=== PATIENT | female | born 1935 | race Caucasian/White ===

== ENCOUNTER 2017-08-23 15:15 | Outpatient (RCR) | payer MEDICARE, OTHER, SELFPAY ==
[2017-07-25 00:19] VITALS: BP 169/95; PULSE 85; RESP 16; TEMP 36.8; BMI 18.7
[2017-07-26 15:30] VITALS: BP 146/67; PULSE 79; RESP 16; TEMP 36.3; BMI 18.7
--- NOTE | 2017-07-26 16:00 | PCM.WC.PN ---
(1) Type 2 diabetes mellitus without complications Status: Chronic Current Visit: Yes Qualifiers: Diabetes mellitus jail insulin use: unspecified jail insulin use status Qualified Code(s): E11.9 - Type 2 diabetes mellitus without complications Code(s): E11.9 - Type 2 diabetes mellitus without complications (2) Type 2 diabetes mellitus with other skin ulcer Status: Acute Current Visit: Yes Qualifiers: Diabetes mellitus jail insulin use: unspecified jail insulin use status Code(s): E11.622 - Type 2 diabetes mellitus with other skin ulcer; L98.499 - Non-pressure chronic ulcer of skin of other sites with unspecified severity (3) Ulcer of calf with fat layer exposed Status: Acute Current Visit: Yes Qualifiers: Laterality: left Qualified Code(s): 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 Pt's granddaughter has been treating it with silvercell and dry bandage daily since discharge from the hospital. Moderate clear drainage. Denies redness, pus, malodor, warmth. Minimal pain. Minimal edema. Denies N/V/F/C. 07/05--Using promogran and silvercell every other day. Improved clear drainage. Denies redness, pus, malodor, warmth. Minimal pain. Minimal edema. Denies N/V/F/C. Vascular testing scheduled for next week. 07/12--Using promogran and silvercell 3x/week. Improved clear drainage. Denies redness, pus, malodor, warmth. Minimal pain. Minimal edema. Denies N/V/F/C. Vascular testing done, final read pending but reveals no venous insufficiency as well as triphasic waveforms (though calcified vessels, so TOY is non-diagnostic). Pt's grand-daughter admits that the patient will not keep any compression in place, because the patient has dementia and forgets why she has a stocking on her leg (so she removes it). 07/26/17--Improved. Using promogran and silvercell every other day. Denies pus, malodor, warmth, pain. Denies N/V/F/C. Progress of Wound: Improved. - Physical Exam Vital Signs Temp Pulse Resp BP 97.4 F L 79 16 146/67 H 07/26/17 15:30 07/26/17 15:30 07/26/17 15:30 07/26/17 15:30 General: Alert, Cooperative, No apparent distress Skin: Ulcer/ Wound - L calf with no erythema, no malodor, no pus, no calor, no TTP. No clinical signs of acute bacterial infection noted. See nurse's wound assessment. Wound Measurements and Assessment WC - Nurse 1 - General Ulcer Measurement Start: 07/26/17 15:30 Freq: Status: Active Protocol: Activity Type Activity Date Activity User E-Sign Co-Sign Detail Recorded Client Recorded Date Recorded By Document 07/26/17 15:30 DL [id number] 07/26/17 15:38 DL 07/26/17 15:30 Wound Center Nurse 1 [Ulcer Assessment Protocol: WC.WD.LOC] #1 Posterior LLE -Current Size (cm) - Length 1 -Current Size (cm) - Width 1.7 -Current Size (cm) - Depth 0.2 -Total Square Cm 1.7 -Photo Taken No -Exudate Amt Small (1-33%) -Exudate Type Serosanguineous -Wound Margin Thickened -Granulation Amt Medium (34-66%) -Granulation Quality [place] -Necrosis Amt Medium (34-66%) -Necrotic Tissue Type Adherent Slough -Structure Exposed N/A -Texture (Anuradha-wound Skin Appearance) Scarring -Moisture (Anuradha-wound Skin Appearance No Abnormality ) -Color (Anuradha-wound Skin Appearance) No Abnormality -Temperature (Anuradha-wound Skin No Abnormality Appearance) (Pt Warm) -Ulcer Cleansing Rinsed/ Irrigated with Saline -Foul Odor after Cleansing No -Anesthetic Used 4% Lidocaine Solution [Edema Assessment] -Left Calf (cm) 28.4 -Left Ankle (cm) 19 Debridement Note Wound debrided: L calf Laterality: Left Wound Grade/Stage: Marino grade 1 full thickness Type of Debridement: Excisional debridement Anesthesia Used: 4% Lidocaine Solution Depth: Down to and including healthy tissue, in the subcutaneous layer Percentage of wound debrided: 100 Instrument Used: 3mm curette Tissue Removed: fibrous slough Severity: Fat Layer Exposed Amount of bleeding with debridement: Mild Bleeding Controlled with: Pressure, Compression and gauze Patient tolerated procedure well Assessment/Plan Active Problems (Last Updated 07/12/17 @ 15:31 by Sol Rodriguez) Striking against or struck by other objects, initial encounter (Acute) Type 2 diabetes mellitus with other skin ulcer (Acute) Type 2 diabetes mellitus without complications (Chronic) Ulcer of calf with fat layer exposed (Acute) Assessment: See diagnoses Plan: SQ/excisional debridement L calf ulcer as above. Cont promogran, stop silvercel. Add adaptic. Keep pressure off ulcer at all times. Discussed importance of tight blood sugar control, adequate nutrition especially increased protein intake to promote healing. LEAs and venous duplex reviewed. Pt has calcified vessels, if ulceration is non-healing, plan for referral to vascular surgeon for further arterial workup. Wear double layer tubigrip--pt less likely to remove to touch the ulcer. RTC 1 week. Monitor for redness, pus, malodor, warmth, inc pain, inc swelling as well as N/V/F/C and go to the ED with these. Call with questions. Decrease freqeuency to 3x/week.
--- NOTE | 2017-07-26 16:04 | PN.PCM_ITS ---
(1) Type 2 diabetes mellitus without complications Status: Chronic Current Visit: Yes Qualifiers: Diabetes mellitus senior living insulin use: unspecified senior living insulin use status Qualified Code(s): E11.9 - Type 2 diabetes mellitus without complications Code(s): E11.9 - Type 2 diabetes mellitus without complications (2) Type 2 diabetes mellitus with other skin ulcer Status: Acute Current Visit: Yes Qualifiers: Diabetes mellitus senior living insulin use: unspecified senior living insulin use status Code(s): E11.622 - Type 2 diabetes mellitus with other skin ulcer; L98.499 - Non -pressure chronic ulcer of skin of other sites with unspecified severity (3) Ulcer of calf with fat layer exposed Status: Acute Current Visit: Yes Qualifiers: Laterality: left Qualified Code(s): 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 Pt's granddaughter has been treating it with silvercell and dry bandage daily since discharge from the hospital. Moderate clear drainage. Denies redness, pus, malodor, warmth. Minimal pain. Minimal edema. Denies N/V/F/C. 07/05--Using promogran and silvercell every other day. Improved clear drainage. Denies redness, pus, malodor, warmth. Minimal pain. Minimal edema. Denies N/V/F/C. Vascular testing scheduled for next week. 07/12--Using promogran and silvercell 3x/ week. Improved clear drainage. Denies redness, pus, malodor, warmth. Minimal pain. Minimal edema. Denies N/V/F/C. Vascular testing done, final read pending but reveals no venous insufficiency as well as triphasic waveforms ( though calcified vessels, so TOY is non-diagnostic). Pt's grand-daughter admits that the patient will not keep any compression in place, because the patient has dementia and forgets why she has a stocking on her leg (so she removes it). 07/26/17--Improved. Using promogran and silvercell every other day. Denies pus, malodor, warmth, pain. Denies N/V/F/C. Progress of Wound: Improved. - Physical Exam Vital Signs Temp Pulse Resp BP 97.4 F L 79 16 146/67 H 07/26/17 15:30 07/26/17 15:30 07/26/17 15:30 07/26/17 15:30 General: Alert, Cooperative, No apparent distress Skin: Ulcer/ Wound - L calf with no erythema, no malodor, no pus, no calor, no TTP. No clinical signs of acute bacterial infection noted. See nurse's wound assessment. Wound Measurements and Assessment WC - Nurse 1 - General Ulcer Measurement Start: 07/26/17 15:30 Freq: Status: Active Protocol: Activity Type Activity Date Activity User E-Sign Co-Sign Detail Recorded Client Recorded Date Recorded By Document 07/26/17 15:30 DL [id number] 07/26/17 15:38 DL 07/26/17 15:30 Wound Center Nurse 1 [Ulcer Assessment Protocol: WC.WD.LOC] #1 Posterior LLE -Current Size (cm) - Length 1 -Current Size (cm) - Width 1.7 -Current Size (cm) - Depth 0.2 -Total Square Cm 1.7 -Photo Taken No -Exudate Amt Small (1-33%) -Exudate Type Serosanguineous -Wound Margin Thickened -Granulation Amt Medium (34-66%) -Granulation Quality [place] -Necrosis Amt Medium (34-66%) -Necrotic Tissue Type Adherent Slough -Structure Exposed N/A -Texture (Anuradha-wound Skin Appearance) Scarring -Moisture (Anuradha-wound Skin Appearance No Abnormality ) -Color (Anuradha-wound Skin Appearance) No Abnormality -Temperature (Anuradha-wound Skin No Abnormality Appearance) (Pt Warm) -Ulcer Cleansing Rinsed/ Irrigated with Saline -Foul Odor after Cleansing No -Anesthetic Used 4% Lidocaine Solution [Edema Assessment] -Left Calf (cm) 28.4 -Left Ankle (cm) 19 Debridement Note Wound debrided: L calf Laterality: Left Wound Grade/Stage: Marino grade 1 full thickness Type of Debridement: Excisional debridement Anesthesia Used: 4% Lidocaine Solution Depth: Down to and including healthy tissue, in the subcutaneous layer Percentage of wound debrided: 100 Instrument Used: 3mm curette Tissue Removed: fibrous slough Severity: Fat Layer Exposed Amount of bleeding with debridement: Mild Bleeding Controlled with: Pressure, Compression and gauze Patient tolerated procedure well Assessment/Plan Active Problems (Last Updated 07/12/17 @ 15:31 by Sol Rodriguez) Striking against or struck by other objects, initial encounter (Acute) Type 2 diabetes mellitus with other skin ulcer (Acute) Type 2 diabetes mellitus without complications (Chronic) Ulcer of calf with fat layer exposed (Acute) Assessment: See diagnoses Plan: SQ/excisional debridement L calf ulcer as above. Cont promogran, stop silvercel. Add adaptic. Keep pressure off ulcer at all times. Discussed importance of tight blood sugar control, adequate nutrition especially increased protein intake to promote healing. LEAs and venous duplex reviewed. Pt has calcified vessels, if ulceration is non-healing, plan for referral to vascular surgeon for further arterial workup. Wear double layer tubigrip--pt less likely to remove to touch the ulcer. RTC 1 week. Monitor for redness, pus , malodor, warmth, inc pain, inc swelling as well as N/V/F/C and go to the ED with these. Call with questions. Decrease freqeuency to 3x/week.
[2017-08-09 16:01] VITALS: BP 136/74; PULSE 92; RESP 18; TEMP 36.4; BMI 18.7
--- NOTE | 2017-08-09 16:40 | PCM.WC.PN ---
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 insulin use status Qualified Code(s): E11.9 - Type 2 diabetes mellitus without complications Code(s): E11.9 - Type 2 diabetes mellitus without complications (3) Type 2 diabetes mellitus with other skin ulcer Status: Acute Current Visit: Yes Qualifiers: Diabetes mellitus long-term insulin use: unspecified watermelon 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 Pt's granddaughter has been treating it with silvercell and dry bandage daily since discharge from the hospital. Moderate clear drainage. Denies redness, pus, malodor, warmth. Minimal pain. Minimal edema. Denies N/V/F/C. 07/05--Using promogran and silvercell every other day. Improved clear drainage. Denies redness, pus, malodor, warmth. Minimal pain. Minimal edema. Denies N/V/F/C. Vascular testing scheduled for next week. 07/12--Using promogran and silvercell 3x/week. Improved clear drainage. Denies redness, pus, malodor, warmth. Minimal pain. Minimal edema. Denies N/V/F/C. Vascular testing done, final read pending but reveals no venous insufficiency as well as triphasic waveforms (though calcified vessels, so TOY is non-diagnostic). Pt's grand-daughter admits that the patient will not keep any compression in place, because the patient has dementia and forgets why she has a stocking on her leg (so she removes it). 07/26/17--Improved. Using promogran and silvercell every other day. Denies pus, malodor, warmth, pain. Denies N/V/F/C. 08/09--Improved. Using promogran and adaptic 3x/week. Denies pus, malodor, warmth, or pain. Denies N/V/F/C. Progress of Wound: Improved. - Physical Exam Vital Signs Temp Pulse Resp BP 97.6 F L 92 18 136/74 H 08/09/17 16:01 08/09/17 16:01 08/09/17 16:01 08/09/17 16:01 General: Alert, Oriented x3, Cooperative, No apparent distress Skin: Ulcer/ Wound - L calf with no erythema, no calor, no purulent drainage, no malodor, no TTP of ulcer or aba-ulcer area. No clinical signs of acute bacterial infection noted. See wound/edema assessment below. Wound Measurements and Assessment - Nurse 1 - General Ulcer Measurement Start: 07/26/17 15:30 Freq: Status: Active Protocol: Activity Type Activity Date Activity User E-Sign Co-Sign Detail Recorded Client Recorded Date Recorded By Document 08/09/17 16:01 [id number] 08/09/17 16:07 08/09/17 16:01 Wound Center Nurse 1 [Ulcer Assessment Protocol: WC.WD.LOC] #1 Posterior LLE -Combined with other wound No -Current Size (cm) - Length 1.3 -Current Size (cm) - Width 1.0 -Current Size (cm) - Depth 0.2 -Total Square Cm 1.30 -Date of Last Picture (Recall this 08/09/17 field) -Photo Taken Yes -Epithelialization None Present -Tunneling No -Undermining/Tunneling No -Circular Undermining No -Classification - Thickness Full Thickness without Exposed Support Structure -Exudate Amt Small (1-33%) -Exudate Type Serosanguineous -Wound Margin Thickened -Granulation Amt Medium (34-66%) -Granulation Quality [place] -Slough/Fibrin Yes -Necrosis Amt None Present (0 %) -Necrotic Tissue Type Adherent Slough -Structure Exposed N/A -Texture (Aba-wound Skin Appearance) Scarring -Moisture (Aba-wound Skin Appearance No Abnormality ) -Color (Aba-wound Skin Appearance) No Abnormality -Temperature (Aba-wound Skin No Abnormality Appearance) (Pt Warm) -Tenderness on Palpation (Aba-wound No Skin Appearance) -Ulcer Cleansing Rinsed/ Irrigated with Saline -Foul Odor after Cleansing No -Anesthetic Used 4% Lidocaine Solution [Edema Assessment] -Lower Limb Edema Present No -Left Calf (cm) 30.5 -Left Ankle (cm) 20.5 Debridement Note Post-Debridement Measurements/Treatment WC - Nurse 2 - General Ulcer CM Notes Start: 07/26/17 15:30 Freq: Status: Active Protocol: Activity Type Activity Date Activity User E-Sign Co-Sign Detail Recorded Client Recorded Date Recorded By Document 07/26/17 15:58 MW [id number] 07/26/17 16:03 MW 07/26/17 15:58 Wound Center Nurse 2 #1 Posterior LLE -Time 15:59 -Correct Patient Yes -Correct Side, Site, Position Yes -Correct Procedure Yes -Procedure Performed Yes -Type of Procedure Debridement -Clinical Debridement Subcutaneous -Post Debridement Size (cm) - Length 1.1 -Post Debridement Size (cm) - Width 1.8 -Post Debridement Size (cm) - Depth 0.1 -Total Square Cm 1.98 -Wound/Ulcer Outcome Not Healed -Ulcer Cleansing Rinsed/ Irrigated with Saline -Foul Odor after Cleansing No -Bioengineered Tissue No -Cetacaine Hines No -Bleeding Controlled with Pressure -Treatment Response Procedure Tolerated Well Pain Scale: 0-10 Numeric Is Patient Pain Free? Yes Wound debrided: L calf Laterality: Left Wound Grade/Stage: Full thickness ulcer - traumatic. Non-healing due to DM, herbert grade 1. Type of Debridement: Excisional debridement Anesthesia Used: 4% Lidocaine Solution Depth: Down to and including healthy tissue, in the subcutaneous layer Percentage of wound debrided: 100 Instrument Used: 3mm curette Tissue Removed: fibrous slough Severity: Fat Layer Exposed Amount of bleeding with debridement: Mild Bleeding Controlled with: Pressure, Compression and gauze Patient tolerated procedure well Assessment/Plan Active Problems (Last Updated 07/12/17 @ 15:31 by Sol Rodriguez) Striking against or struck by other objects, initial encounter (Acute) Type 2 diabetes mellitus with other skin ulcer (Acute) Type 2 diabetes mellitus without complications (Chronic) Ulcer of calf with fat layer exposed (Acute) Assessment: See diagnoses Plan: SQ/excisional debridement L calf ulcer as above. Cont promogran, adaptic. Keep pressure off ulcer at all times. Discussed importance of tight blood sugar control, adequate nutrition especially increased protein intake to promote healing. LEAs and venous duplex reviewed. Pt has calcified vessels, if ulceration is non-healing, plan for referral to vascular surgeon for further arterial workup. Wear double layer tubigrip--pt less likely to remove to touch the ulcer. RTC 1 week. Monitor for redness, pus, malodor, warmth, inc pain, inc swelling as well as N/V/F/C and go to the ED with these. Call with questions. Cont 3x/week.
--- NOTE | 2017-08-09 16:45 | PN.PCM_ITS ---
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 Code(s): L97.202 - Non-pressure chronic ulcer of unspecified calf with fat layer exposed (2) Type 2 diabetes mellitus without complications Status: Chronic Current Visit: Yes Qualifiers: Diabetes mellitus intermediate project manager insulin use: unspecified intermediate project manager insulin use status Qualified Code(s): E11.9 - Type 2 diabetes mellitus without complications Code(s): E11.9 - Type 2 diabetes mellitus without complications (3) Type 2 diabetes mellitus with other skin ulcer Status: Acute Current Visit: Yes Qualifiers: Diabetes mellitus long-term insulin use: unspecified intermediate project manager insulin use status Code(s): E11.622 - Type 2 diabetes mellitus with other skin ulcer; L98.499 - Non -pressure chronic ulcer of skin of other sites with unspecified severity (4) Striking against or struck by other objects, initial encounter Status: Acute Current Visit: Yes Code(s): W22.8XXA - Striking against or struck by other objects, initial encounter Type of Wound Date of Service: 08/09/17 Chief Complaint: L calf ulcer History of Wound: L calf ulcer present for 2 months, non-healing likely due to diabetes, present due to strike against a walker. Pt's granddaughter has been treating it with silvercell and dry bandage daily since discharge from the hospital. Moderate clear drainage. Denies redness, pus, malodor, warmth. Minimal pain. Minimal edema. Denies N/V/F/C. 07/05--Using promogran and silvercell every other day. Improved clear drainage. Denies redness, pus, malodor, warmth. Minimal pain. Minimal edema. Denies N/V/F/C. Vascular testing scheduled for next week. 07/12--Using promogran and silvercell 3x/ week. Improved clear drainage. Denies redness, pus, malodor, warmth. Minimal pain. Minimal edema. Denies N/V/F/C. Vascular testing done, final read pending but reveals no venous insufficiency as well as triphasic waveforms ( though calcified vessels, so TOY is non-diagnostic). Pt's grand-daughter admits that the patient will not keep any compression in place, because the patient has dementia and forgets why she has a stocking on her leg (so she removes it). 07/26/17--Improved. Using promogran and silvercell every other day. Denies pus, malodor, warmth, pain. Denies N/V/F/C. 08/09--Improved. Using promogran and adaptic 3x/week. Denies pus, malodor, warmth, or pain. Denies N/V/F/C. Progress of Wound: Improved. - Physical Exam Vital Signs Temp Pulse Resp BP 97.6 F L 92 18 136/74 H 08/09/17 16:01 08/09/17 16:01 08/09/17 16:01 08/09/17 16:01 General: Alert, Oriented x3, Cooperative, No apparent distress Skin: Ulcer/ Wound - L calf with no erythema, no calor, no purulent drainage, no malodor, no TTP of ulcer or aba-ulcer area. No clinical signs of acute bacterial infection noted. See wound/edema assessment below. Wound Measurements and Assessment - Nurse 1 - General Ulcer Measurement Start: 07/26/17 15:30 Freq: Status: Active Protocol: Activity Type Activity Date Activity User E-Sign Co-Sign Detail Recorded Client Recorded Date Recorded By Document 08/09/17 16:01 [id number] 08/09/17 16:07 08/09/17 16:01 Wound Center Nurse 1 [Ulcer Assessment Protocol: WC.WD.LOC] #1 Posterior LLE -Combined with other wound No -Current Size (cm) - Length 1.3 -Current Size (cm) - Width 1.0 -Current Size (cm) - Depth 0.2 -Total Square Cm 1.30 -Date of Last Picture (Recall this 08/09/17 field) -Photo Taken Yes -Epithelialization None Present -Tunneling No -Undermining/Tunneling No -Circular Undermining No -Classification - Thickness Full Thickness without Exposed Support Structure -Exudate Amt Small (1-33%) -Exudate Type Serosanguineous -Wound Margin Thickened -Granulation Amt Medium (34-66%) -Granulation Quality [employer] -Slough/Fibrin Yes -Necrosis Amt None Present (0 %) -Necrotic Tissue Type Adherent Slough -Structure Exposed N/A -Texture (Aba-wound Skin Appearance) Scarring -Moisture (Aba-wound Skin Appearance No Abnormality ) -Color (Aba-wound Skin Appearance) No Abnormality -Temperature (Aba-wound Skin No Abnormality Appearance) (Pt Warm) -Tenderness on Palpation (Aba-wound No Skin Appearance) -Ulcer Cleansing Rinsed/ Irrigated with Saline -Foul Odor after Cleansing No -Anesthetic Used 4% Lidocaine Solution [Edema Assessment] -Lower Limb Edema Present No -Left Calf (cm) 30.5 -Left Ankle (cm) 20.5 Debridement Note Post-Debridement Measurements/Treatment WC - Nurse 2 - General Ulcer CM Notes Start: 07/26/17 15:30 Freq: Status: Active Protocol: Activity Type Activity Date Activity User E-Sign Co-Sign Detail Recorded Client Recorded Date Recorded By Document 07/26/17 15:58 MW [id number] 07/26/17 16:03 MW 07/26/17 15:58 Wound Center Nurse 2 #1 Posterior LLE -Time 15:59 -Correct Patient Yes -Correct Side, Site, Position Yes -Correct Procedure Yes -Procedure Performed Yes -Type of Procedure Debridement -Clinical Debridement Subcutaneous -Post Debridement Size (cm) - Length 1.1 -Post Debridement Size (cm) - Width 1.8 -Post Debridement Size (cm) - Depth 0.1 -Total Square Cm 1.98 -Wound/Ulcer Outcome Not Healed -Ulcer Cleansing Rinsed/ Irrigated with Saline -Foul Odor after Cleansing No -Bioengineered Tissue No -Cetacaine [place] No -Bleeding Controlled with Pressure -Treatment Response Procedure Tolerated Well Pain Scale: 0-10 Numeric Is Patient Pain Free? Yes Wound debrided: L calf Laterality: Left Wound Grade/Stage: Full thickness ulcer - traumatic. Non-healing due to DM, herbert grade 1. Type of Debridement: Excisional debridement Anesthesia Used: 4% Lidocaine Solution Depth: Down to and including healthy tissue, in the subcutaneous layer Percentage of wound debrided: 100 Instrument Used: 3mm curette Tissue Removed: fibrous slough Severity: Fat Layer Exposed Amount of bleeding with debridement: Mild Bleeding Controlled with: Pressure, Compression and gauze Patient tolerated procedure well Assessment/Plan Active Problems (Last Updated 07/12/17 @ 15:31 by Sol Rodriguez) Striking against or struck by other objects, initial encounter (Acute) Type 2 diabetes mellitus with other skin ulcer (Acute) Type 2 diabetes mellitus without complications (Chronic) Ulcer of calf with fat layer exposed (Acute) Assessment: See diagnoses Plan: SQ/excisional debridement L calf ulcer as above. Cont promogran, adaptic. Keep pressure off ulcer at all times. Discussed importance of tight blood sugar control, adequate nutrition especially increased protein intake to promote healing. LEAs and venous duplex reviewed. Pt has calcified vessels, if ulceration is non-healing, plan for referral to vascular surgeon for further arterial workup. Wear double layer tubigrip--pt less likely to remove to touch the ulcer. RTC 1 week. Monitor for redness, pus, malodor, warmth, inc pain, inc swelling as well as N/V/F/C and go to the ED with these. Call with questions. Cont 3x/week.
[2017-08-16 15:09] VITALS: BP 147/96; PULSE 89; RESP 18; TEMP 36.6; BMI 18.7
--- NOTE | 2017-08-16 16:02 | PCM.WC.PN ---
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 Code(s): L97.202 - Non-pressure chronic ulcer of unspecified calf with fat layer exposed (2) Type 2 diabetes mellitus without complications Status: Chronic Current Visit: Yes Qualifiers: Diabetes mellitus rn long term care insulin use: unspecified rn long term care insulin use status Qualified Code(s): E11.9 - Type 2 diabetes mellitus without complications Code(s): E11.9 - Type 2 diabetes mellitus without complications (3) Type 2 diabetes mellitus with other skin ulcer Status: Acute Current Visit: Yes Qualifiers: Diabetes mellitus alf insulin use: unspecified rn long term care insulin use status Code(s): E11.622 - Type 2 diabetes mellitus with other skin ulcer; L98.499 - Non-pressure chronic ulcer of skin of other sites with unspecified severity (4) Striking against or struck by other objects, initial encounter Status: Acute Current Visit: Yes Code(s): W22.8XXA - Striking against or struck by other objects, initial encounter Type of Wound Date of Service: 08/16/17 Chief Complaint: L calf ulcer History of Wound: L calf ulcer present for 2 months, non-healing likely due to diabetes, present due to strike against a walker. Pt's granddaughter has been treating it with silvercell and dry bandage daily since discharge from the hospital. Moderate clear drainage. Denies redness, pus, malodor, warmth. Minimal pain. Minimal edema. Denies N/V/F/C. 07/05--Using promogran and silvercell every other day. Improved clear drainage. Denies redness, pus, malodor, warmth. Minimal pain. Minimal edema. Denies N/V/F/C. Vascular testing scheduled for next week. 07/12--Using promogran and silvercell 3x/week. Improved clear drainage. Denies redness, pus, malodor, warmth. Minimal pain. Minimal edema. Denies N/V/F/C. Vascular testing done, final read pending but reveals no venous insufficiency as well as triphasic waveforms (though calcified vessels, so TOY is non-diagnostic). Pt's grand-daughter admits that the patient will not keep any compression in place, because the patient has dementia and forgets why she has a stocking on her leg (so she removes it). 07/26/17--Improved. Using promogran and silvercell every other day. Denies pus, malodor, warmth, pain. Denies N/V/F/C. 08/09--Improved. Using promogran and adaptic 3x/week. Denies pus, malodor, warmth, or pain. Denies N/V/F/C. 08/16--Improved. Using promogran and adaptic 3x/week. Denies pus, malodor, warmth, or pain. Denies N/V/F/C. Area is drying out, will add hydrogel today. Progress of Wound: Improved, but drying out today. - Physical Exam Vital Signs Temp Pulse Resp BP 97.8 F 89 18 147/96 H 08/16/17 15:09 08/16/17 15:09 08/16/17 15:09 08/16/17 15:09 General: Alert, Oriented x3, Cooperative, No apparent distress Skin: Ulcer/ Wound - L calf with no erythema, no malodor, no pus, no TTP, no warmth. No clinical signs of acute bacterial infection noted. See wound/edema assessment below. Wound Measurements and Assessment ALEXUS - Nurse 1 - General Ulcer Measurement Start: 07/26/17 15:30 Freq: Status: Active Protocol: Activity Type Activity Date Activity User E-Sign Co-Sign Detail Recorded Client Recorded Date Recorded By Document 08/16/17 15:09 [id number] 08/16/17 15:18 08/16/17 15:09 Wound Center Nurse 1 [Ulcer Assessment Protocol: WC.WD.LOC] #1 Posterior LLE -Combined with other wound No -Current Size (cm) - Length 0.6 -Current Size (cm) - Width 0.6 -Current Size (cm) - Depth 0.1 -Total Square Cm 0.36 -Photo Taken No -Epithelialization Medium 34-66% -Tunneling No -Undermining/Tunneling No -Circular Undermining No -Exudate Amt None Present (0 %) -Wound Margin Indistinct, Non -Visible -Granulation Amt Medium (34-66%) -Granulation Quality [place] -Slough/Fibrin Yes -Necrosis Amt Small (1-33%) -Necrotic Tissue Type Adherent Slough -Structure Exposed N/A -Texture (Anuradha-wound Skin Appearance) Assessed Localized Edema -Moisture (Anuradha-wound Skin Appearance Assessed ) Dry/Scaly -Color (Anuradha-wound Skin Appearance) Assessed -Temperature (Anuradha-wound Skin No Abnormality Appearance) (Pt Warm) -Tenderness on Palpation (Anuradha-wound No Skin Appearance) -Ulcer Cleansing Rinsed/ Irrigated with Saline -Foul Odor after Cleansing No -Anesthetic Used 4% Lidocaine Solution [Edema Assessment] -Lower Limb Edema Present Yes -Left Calf (cm) 31.7 -Left Ankle (cm) 21.8 WC - Nurse 2 - General Ulcer CM Notes Start: 07/26/17 15:30 Freq: Status: Active Protocol: Activity Type Activity Date Activity User E-Sign Co-Sign Detail Recorded Client Recorded Date Recorded By Document 08/16/17 15:42 MW [id number] 08/16/17 15:44 MW 08/16/17 15:42 Wound Center Nurse 2 [Procedure/Treatment] #1 Posterior LLE -Time 15:43 -Correct Patient Yes -Correct Side, Site, Position Yes -Correct Procedure Yes -Procedure Performed Yes -Type of Procedure Debridement -Clinical Debridement Subcutaneous -Post Debridement Size (cm) - Length 0.6 -Post Debridement Size (cm) - Width 0.7 -Post Debridement Size (cm) - Depth 0.1 -Total Square Cm 0.42 -Wound/Ulcer Outcome Not Healed -Ulcer Cleansing Rinsed/ Irrigated with Saline -Foul Odor after Cleansing No -Bioengineered Tissue No -Cetacaine [place] No -Bleeding Controlled with Pressure -Treatment Response Procedure Tolerated Well [See Physician Procedure note for Specifics] Pain Scale: 0-10 Numeric [Pain] -Is Patient Pain Free? Yes Debridement Note Post-Debridement Measurements/Treatment WC - Nurse 2 - General Ulcer CM Notes Start: 07/26/17 15:30 Freq: Status: Active Protocol: Activity Type Activity Date Activity User E-Sign Co-Sign Detail Recorded Client Recorded Date Recorded By Document 07/26/17 15:58 MW [id number] 07/26/17 16:03 MW Document 08/09/17 17:21 MW [id number] 08/09/17 17:21 MW Document 08/16/17 15:42 MW [id number] 08/16/17 15:44 MW 07/26/17 08/09/17 08/16/17 15:58 17:21 15:42 Wound Center Nurse 2 #1 Posterior LLE -Time 15:59 16:25 15:43 -Correct Patient Yes Yes Yes -Correct Side, Site, Position Yes Yes Yes -Correct Procedure Yes Yes Yes -Procedure Performed Yes Yes Yes -Type of Procedure Debridement Debridement Debridement -Clinical Debridement Subcutaneous Subcutaneous Subcutaneous -Post Debridement Size (cm) - Length 1.1 1.4 0.6 -Post Debridement Size (cm) - Width 1.8 1.0 0.7 -Post Debridement Size (cm) - Depth 0.1 0.2 0.1 -Total Square Cm 1.98 1.40 0.42 -Wound/Ulcer Outcome Not Healed Not Healed Not Healed -Ulcer Cleansing Rinsed/ Rinsed/ Rinsed/ Irrigated with Irrigated with Irrigated with Saline Saline Saline -Foul Odor after Cleansing No No No -Bioengineered Tissue No No No -Cetacaine [place] No No No -Bleeding Controlled with Pressure Pressure Pressure -Treatment Response Procedure Procedure Procedure Tolerated Well Tolerated Well Tolerated Well Pain Scale: 0-10 Numeric Is Patient Pain Free? Yes Yes Yes Wound debrided: L calf Laterality: Left Wound Grade/Stage: full thickness Type of Debridement: Excisional debridement Anesthesia Used: 4% Lidocaine Solution Depth: Down to and including healthy tissue, in the subcutaneous layer Percentage of wound debrided: 100 Instrument Used: 3mm curette Tissue Removed: fibrous slough Severity: Fat Layer Exposed Amount of bleeding with debridement: Mild Bleeding Controlled with: Pressure, Compression and gauze Patient tolerated procedure well Assessment/Plan Active Problems (Last Updated 07/12/17 @ 15:31 by Sol Rodriguez) Striking against or struck by other objects, initial encounter (Acute) Type 2 diabetes mellitus with other skin ulcer (Acute) Type 2 diabetes mellitus without complications (Chronic) Ulcer of calf with fat layer exposed (Acute) Assessment: See diagnoses Plan: SQ/excisional debridement L calf ulcer as above. Cont promogran, adaptic. Add collagen hydrogel on top of promogran. Keep pressure off ulcer at all times. Discussed importance of tight blood sugar control, adequate nutrition especially increased protein intake to promote healing. LEAs and venous duplex reviewed. Pt has calcified vessels, if ulceration is non-healing, plan for referral to vascular surgeon for further arterial workup. Wear double layer tubigrip--pt less likely to remove to touch the ulcer. RTC 1 week. Monitor for redness, pus, malodor, warmth, inc pain, inc swelling as well as N/V/F/C and go to the ED with these. Call with questions. Cont 3x/week.
--- NOTE | 2017-08-16 16:06 | PN.PCM_ITS ---
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 Code(s): L97.202 - Non-pressure chronic ulcer of unspecified calf with fat layer exposed (2) Type 2 diabetes mellitus without complications Status: Chronic Current Visit: Yes Qualifiers: Diabetes mellitus bed bug exterminator insulin use: unspecified bed bug exterminator insulin use status Qualified Code(s): E11.9 - Type 2 diabetes mellitus without complications Code(s): E11.9 - Type 2 diabetes mellitus without complications (3) Type 2 diabetes mellitus with other skin ulcer Status: Acute Current Visit: Yes Qualifiers: Diabetes mellitus fpc insulin use: unspecified bed bug exterminator insulin use status Code(s): E11.622 - Type 2 diabetes mellitus with other skin ulcer; L98.499 - Non -pressure chronic ulcer of skin of other sites with unspecified severity (4) Striking against or struck by other objects, initial encounter Status: Acute Current Visit: Yes Code(s): W22.8XXA - Striking against or struck by other objects, initial encounter Type of Wound Date of Service: 08/16/17 Chief Complaint: L calf ulcer History of Wound: L calf ulcer present for 2 months, non-healing likely due to diabetes, present due to strike against a walker. Pt's granddaughter has been treating it with silvercell and dry bandage daily since discharge from the hospital. Moderate clear drainage. Denies redness, pus, malodor, warmth. Minimal pain. Minimal edema. Denies N/V/F/C. 07/05--Using promogran and silvercell every other day. Improved clear drainage. Denies redness, pus, malodor, warmth. Minimal pain. Minimal edema. Denies N/V/F/C. Vascular testing scheduled for next week. 07/12--Using promogran and silvercell 3x/ week. Improved clear drainage. Denies redness, pus, malodor, warmth. Minimal pain. Minimal edema. Denies N/V/F/C. Vascular testing done, final read pending but reveals no venous insufficiency as well as triphasic waveforms ( though calcified vessels, so TOY is non-diagnostic). Pt's grand-daughter admits that the patient will not keep any compression in place, because the patient has dementia and forgets why she has a stocking on her leg (so she removes it). 07/26/17--Improved. Using promogran and silvercell every other day. Denies pus, malodor, warmth, pain. Denies N/V/F/C. 08/09--Improved. Using promogran and adaptic 3x/week. Denies pus, malodor, warmth, or pain. Denies N/V/F/C. 08/16--Improved. Using promogran and adaptic 3x/week. Denies pus, malodor, warmth, or pain. Denies N/V/F/C. Area is drying out, will add hydrogel today. Progress of Wound: Improved, but drying out today. - Physical Exam Vital Signs Temp Pulse Resp BP 97.8 F 89 18 147/96 H 08/16/17 15:09 08/16/17 15:09 08/16/17 15:09 08/16/17 15:09 General: Alert, Oriented x3, Cooperative, No apparent distress Skin: Ulcer/ Wound - L calf with no erythema, no malodor, no pus, no TTP, no warmth. No clinical signs of acute bacterial infection noted. See wound/edema assessment below. Wound Measurements and Assessment ALEXUS - Nurse 1 - General Ulcer Measurement Start: 07/26/17 15:30 Freq: Status: Active Protocol: Activity Type Activity Date Activity User E-Sign Co-Sign Detail Recorded Client Recorded Date Recorded By Document 08/16/17 15:09 [id number] 08/16/17 15:18 08/16/17 15:09 Wound Center Nurse 1 [Ulcer Assessment Protocol: WC.WD.LOC] #1 Posterior LLE -Combined with other wound No -Current Size (cm) - Length 0.6 -Current Size (cm) - Width 0.6 -Current Size (cm) - Depth 0.1 -Total Square Cm 0.36 -Photo Taken No -Epithelialization Medium 34-66% -Tunneling No -Undermining/Tunneling No -Circular Undermining No -Exudate Amt None Present (0 %) -Wound Margin Indistinct, Non -Visible -Granulation Amt Medium (34-66%) -Granulation Quality [place] -Slough/Fibrin Yes -Necrosis Amt Small (1-33%) -Necrotic Tissue Type Adherent Slough -Structure Exposed N/A -Texture (Anuradha-wound Skin Appearance) Assessed Localized Edema -Moisture (Anuradha-wound Skin Appearance Assessed ) Dry/Scaly -Color (Anuradha-wound Skin Appearance) Assessed -Temperature (Anuradha-wound Skin No Abnormality Appearance) (Pt Warm) -Tenderness on Palpation (Anuradha-wound No Skin Appearance) -Ulcer Cleansing Rinsed/ Irrigated with Saline -Foul Odor after Cleansing No -Anesthetic Used 4% Lidocaine Solution [Edema Assessment] -Lower Limb Edema Present Yes -Left Calf (cm) 31.7 -Left Ankle (cm) 21.8 WC - Nurse 2 - General Ulcer CM Notes Start: 07/26/17 15:30 Freq: Status: Active Protocol: Activity Type Activity Date Activity User E-Sign Co-Sign Detail Recorded Client Recorded Date Recorded By Document 08/16/17 15:42 MW [id number] 08/16/17 15:44 MW 08/16/17 15:42 Wound Center Nurse 2 [Procedure/Treatment] #1 Posterior LLE -Time 15:43 -Correct Patient Yes -Correct Side, Site, Position Yes -Correct Procedure Yes -Procedure Performed Yes -Type of Procedure Debridement -Clinical Debridement Subcutaneous -Post Debridement Size (cm) - Length 0.6 -Post Debridement Size (cm) - Width 0.7 -Post Debridement Size (cm) - Depth 0.1 -Total Square Cm 0.42 -Wound/Ulcer Outcome Not Healed -Ulcer Cleansing Rinsed/ Irrigated with Saline -Foul Odor after Cleansing No -Bioengineered Tissue No -Cetacaine [place] No -Bleeding Controlled with Pressure -Treatment Response Procedure Tolerated Well [See Physician Procedure note for Specifics] Pain Scale: 0-10 Numeric [Pain] -Is Patient Pain Free? Yes Debridement Note Post-Debridement Measurements/Treatment WC - Nurse 2 - General Ulcer CM Notes Start: 07/26/17 15:30 Freq: Status: Active Protocol: Activity Type Activity Date Activity User E-Sign Co-Sign Detail Recorded Client Recorded Date Recorded By Document 07/26/17 15:58 MW [id number] 07/26/17 16:03 MW Document 08/09/17 17:21 MW [id number] 08/09/17 17:21 MW Document 08/16/17 15:42 MW [id number] 08/16/17 15:44 MW 07/26/17 08/09/17 08/16/17 15:58 17:21 15:42 Wound Center Nurse 2 #1 Posterior LLE -Time 15:59 16:25 15:43 -Correct Patient Yes Yes Yes -Correct Side, Site, Position Yes Yes Yes -Correct Procedure Yes Yes Yes -Procedure Performed Yes Yes Yes -Type of Procedure Debridement Debridement Debridement -Clinical Debridement Subcutaneous Subcutaneous Subcutaneous -Post Debridement Size (cm) - Length 1.1 1.4 0.6 -Post Debridement Size (cm) - Width 1.8 1.0 0.7 -Post Debridement Size (cm) - Depth 0.1 0.2 0.1 -Total Square Cm 1.98 1.40 0.42 -Wound/Ulcer Outcome Not Healed Not Healed Not Healed -Ulcer Cleansing Rinsed/ Rinsed/ Rinsed/ Irrigated with Irrigated with Irrigated with Saline Saline Saline -Foul Odor after Cleansing No No No -Bioengineered Tissue No No No -Cetacaine [place] No No No -Bleeding Controlled with Pressure Pressure Pressure -Treatment Response Procedure Procedure Procedure Tolerated Well Tolerated Well Tolerated Well Pain Scale: 0-10 Numeric Is Patient Pain Free? Yes Yes Yes Wound debrided: L calf Laterality: Left Wound Grade/Stage: full thickness Type of Debridement: Excisional debridement Anesthesia Used: 4% Lidocaine Solution Depth: Down to and including healthy tissue, in the subcutaneous layer Percentage of wound debrided: 100 Instrument Used: 3mm curette Tissue Removed: fibrous slough Severity: Fat Layer Exposed Amount of bleeding with debridement: Mild Bleeding Controlled with: Pressure, Compression and gauze Patient tolerated procedure well Assessment/Plan Active Problems (Last Updated 07/12/17 @ 15:31 by Sol Rodriguez) Striking against or struck by other objects, initial encounter (Acute) Type 2 diabetes mellitus with other skin ulcer (Acute) Type 2 diabetes mellitus without complications (Chronic) Ulcer of calf with fat layer exposed (Acute) Assessment: See diagnoses Plan: SQ/excisional debridement L calf ulcer as above. Cont promogran, adaptic. Add collagen hydrogel on top of promogran. Keep pressure off ulcer at all times. Discussed importance of tight blood sugar control, adequate nutrition especially increased protein intake to promote healing. LEAs and venous duplex reviewed. Pt has calcified vessels, if ulceration is non-healing , plan for referral to vascular surgeon for further arterial workup. Wear double layer tubigrip--pt less likely to remove to touch the ulcer. RTC 1 week. Monitor for redness, pus, malodor, warmth, inc pain, inc swelling as well as N/V/F/C and go to the ED with these. Call with questions. Cont 3x/week.
[2017-08-23 15:13] VITALS: TEMP 36.2; BMI 18.7
--- NOTE | 2017-08-23 16:20 | PCM.WC.PN ---
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 Code(s): L97.202 - Non-pressure chronic ulcer of unspecified calf with fat layer exposed (2) Type 2 diabetes mellitus without complications Status: Chronic Current Visit: Yes Qualifiers: Diabetes mellitus canteen attendant insulin use: unspecified canteen attendant insulin use status Qualified Code(s): E11.9 - Type 2 diabetes mellitus without complications Code(s): E11.9 - Type 2 diabetes mellitus without complications (3) Type 2 diabetes mellitus with other skin ulcer Status: Acute Current Visit: Yes Qualifiers: Diabetes mellitus correction insulin use: unspecified canteen attendant insulin use status Code(s): E11.622 - Type 2 diabetes mellitus with other skin ulcer; L98.499 - Non-pressure chronic ulcer of skin of other sites with unspecified severity (4) Striking against or struck by other objects, initial encounter Status: Acute Current Visit: Yes Code(s): W22.8XXA - Striking against or struck by other objects, initial encounter Type of Wound Date of Service: 08/23/17 Chief Complaint: L calf ulcer History of Wound: L calf ulcer present for 2 months, non-healing likely due to diabetes, present due to strike against a walker. Pt's granddaughter has been treating it with silvercell and dry bandage daily since discharge from the hospital. Moderate clear drainage. Denies redness, pus, malodor, warmth. Minimal pain. Minimal edema. Denies N/V/F/C. 07/05--Using promogran and silvercell every other day. Improved clear drainage. Denies redness, pus, malodor, warmth. Minimal pain. Minimal edema. Denies N/V/F/C. Vascular testing scheduled for next week. 07/12--Using promogran and silvercell 3x/week. Improved clear drainage. Denies redness, pus, malodor, warmth. Minimal pain. Minimal edema. Denies N/V/F/C. Vascular testing done, final read pending but reveals no venous insufficiency as well as triphasic waveforms (though calcified vessels, so TOY is non-diagnostic). Pt's grand-daughter admits that the patient will not keep any compression in place, because the patient has dementia and forgets why she has a stocking on her leg (so she removes it). 07/26/17--Improved. Using promogran and silvercell every other day. Denies pus, malodor, warmth, pain. Denies N/V/F/C. 08/09--Improved. Using promogran and adaptic 3x/week. Denies pus, malodor, warmth, or pain. Denies N/V/F/C. 08/16--Improved. Using promogran and adaptic 3x/week. Denies pus, malodor, warmth, or pain. Denies N/V/F/C. Area is drying out, will add hydrogel today. 08/23--Improved, almost healed. Using promogran, hydrogel, and adaptic 3x/week. Denies pus, malodor, warmth, or pain. Denies N/V/F/C. Progress of Wound: Improved, almost healed - Physical Exam Vital Signs Temp Pulse Resp BP 97.1 F L 89 18 147/96 H 08/23/17 15:13 08/16/17 15:09 08/16/17 15:09 08/16/17 15:09 General: Alert, Oriented x3, Cooperative, No apparent distress Skin: Ulcer/ Wound - L calf with no erythema, no pus, no malodor, no increased warmth, no TTP of wound or anuradha-wound area. No clinical signs of acute bacterial infection noted. See nurse's wound assessment. Wound Measurements and Assessment ALEXUS - Nurse 1 - General Ulcer Measurement Start: 07/26/17 15:30 Freq: Status: Active Protocol: Activity Type Activity Date Activity User E-Sign Co-Sign Detail Recorded Client Recorded Date Recorded By Document 08/23/17 15:13 TN [id number] 08/23/17 15:25 TN 08/23/17 15:13 Wound Center Nurse 1 [Ulcer Assessment Protocol: ALEXUS.WD.LOC] #1 Posterior LLE -Combined with other wound No -Current Size (cm) - Length 0.7 -Current Size (cm) - Width 0.6 -Current Size (cm) - Depth 0.1 -Total Square Cm 0.42 -Photo Taken No -Epithelialization None Present -Tunneling No -Undermining/Tunneling No -Circular Undermining No -Classification - Thickness Full Thickness without Exposed Support Structure -Exudate Amt None Present (0 %) -Wound Margin Distinct, Outline Attached -Granulation Amt None Present (0 %) -Slough/Fibrin Yes -Necrotic Tissue Type Adherent Slough -Structure Exposed None/Limited to Skin Breakdown -Texture (Anuradha-wound Skin Appearance) Assessed Scarring -Moisture (Anuradha-wound Skin Appearance Assessed ) Dry/Scaly -Color (Anuradha-wound Skin Appearance) Assessed Palor -Temperature (Anuradha-wound Skin No Abnormality Appearance) (Pt Warm) -Tenderness on Palpation (Anuradha-wound No Skin Appearance) -Ulcer Cleansing Rinsed/ Irrigated with Saline -Foul Odor after Cleansing No -Anesthetic Used 4% Lidocaine Solution [Edema Assessment] -Lower Limb Edema Present No -Left Calf (cm) 28.7 -Left Ankle (cm) 21.5 WC - Nurse 2 - General Ulcer CM Notes Start: 07/26/17 15:30 Freq: Status: Active Protocol: Activity Type Activity Date Activity User E-Sign Co-Sign Detail Recorded Client Recorded Date Recorded By Document 08/23/17 16:10 MW [id number] 08/23/17 16:11 MW 08/23/17 16:10 Wound Center Nurse 2 [Procedure/Treatment] #1 Posterior LLE -Time 16:10 -Correct Patient Yes -Correct Side, Site, Position Yes -Correct Procedure Yes -Procedure Performed Yes -Type of Procedure Debridement -Clinical Debridement Selective -Post Debridement Size (cm) - Length 0.3 -Post Debridement Size (cm) - Width 0.3 -Post Debridement Size (cm) - Depth 0.1 -Total Square Cm 0.09 -Wound/Ulcer Outcome Not Healed -Ulcer Cleansing Rinsed/ Irrigated with Saline -Foul Odor after Cleansing No -Bioengineered Tissue No -Cetacaine [place] No -Bleeding Controlled with Pressure -Treatment Response Procedure Tolerated Well [See Physician Procedure note for Specifics] Pain Scale: 0-10 Numeric [Pain] -Is Patient Pain Free? Yes Debridement Note Post-Debridement Measurements/Treatment WC - Nurse 2 - General Ulcer CM Notes Start: 07/26/17 15:30 Freq: Status: Active Protocol: Activity Type Activity Date Activity User E-Sign Co-Sign Detail Recorded Client Recorded Date Recorded By Document 07/26/17 15:58 MW [id number] 07/26/17 16:03 MW Document 08/09/17 17:21 MW [id number] 08/09/17 17:21 MW Document 08/16/17 15:42 MW [id number] 08/16/17 15:44 MW Document 08/23/17 16:10 MW [id number] 08/23/17 16:11 MW 07/26/17 08/09/17 08/16/17 15:58 17:21 15:42 Wound Center Nurse 2 #1 Posterior LLE -Time 15:59 16:25 15:43 -Correct Patient Yes Yes Yes -Correct Side, Site, Position Yes Yes Yes -Correct Procedure Yes Yes Yes -Procedure Performed Yes Yes Yes -Type of Procedure Debridement Debridement Debridement -Clinical Debridement Subcutaneous Subcutaneous Subcutaneous -Post Debridement Size (cm) - Length 1.1 1.4 0.6 -Post Debridement Size (cm) - Width 1.8 1.0 0.7 -Post Debridement Size (cm) - Depth 0.1 0.2 0.1 -Total Square Cm 1.98 1.40 0.42 -Wound/Ulcer Outcome Not Healed Not Healed Not Healed -Ulcer Cleansing Rinsed/ Rinsed/ Rinsed/ Irrigated with Irrigated with Irrigated with Saline Saline Saline -Foul Odor after Cleansing No No No -Bioengineered Tissue No No No -Cetacaine [place] No No No -Bleeding Controlled with Pressure Pressure Pressure -Treatment Response Procedure Procedure Procedure Tolerated Well Tolerated Well Tolerated Well Pain Scale: 0-10 Numeric Is Patient Pain Free? Yes Yes Yes 08/23/17 16:10 Wound Center Nurse 2 #1 Posterior E -Time 16:10 -Correct Patient Yes -Correct Side, Site, Position Yes -Correct Procedure Yes -Procedure Performed Yes -Type of Procedure Debridement -Clinical Debridement Selective -Post Debridement Size (cm) - Length 0.3 -Post Debridement Size (cm) - Width 0.3 -Post Debridement Size (cm) - Depth 0.1 -Total Square Cm 0.09 -Wound/Ulcer Outcome Not Healed -Ulcer Cleansing Rinsed/ Irrigated with Saline -Foul Odor after Cleansing No -Bioengineered Tissue No -Cetacaine [place] No -Bleeding Controlled with Pressure -Treatment Response Procedure Tolerated Well Pain Scale: 0-10 Numeric Is Patient Pain Free? Yes Wound debrided: L calf Laterality: Left Wound Grade/Stage: traumatic full thickness Type of Debridement: Selective debridement Anesthesia Used: 4% Lidocaine Solution Depth: Down to and including healthy tissue Percentage of wound debrided: 100 Instrument Used: 3mm curette Tissue Removed: fibrous slough Severity: Limited To Skin Breakdown Amount of bleeding with debridement: None Bleeding Controlled with: Pressure, Compression and gauze Patient tolerated procedure well Assessment/Plan Active Problems (Last Updated 07/12/17 @ 15:31 by Sol Rodriguez) Striking against or struck by other objects, initial encounter (Acute) Type 2 diabetes mellitus with other skin ulcer (Acute) Type 2 diabetes mellitus without complications (Chronic) Ulcer of calf with fat layer exposed (Acute) Assessment: See diagnoses Plan: Selective/medical debridement of L calf ulcer as above. Switch to collagen hydrogel daily. Keep pressure off ulcer at all times. Discussed importance of tight blood sugar control, adequate nutrition especially increased protein intake to promote healing. LEAs and venous duplex reviewed. Pt has calcified vessels, if ulceration is non-healing, plan for referral to vascular surgeon for further arterial workup. Wear double layer tubigrip--pt less likely to remove to touch the ulcer. RTC 1 week. Monitor for redness, pus, malodor, warmth, inc pain, inc swelling as well as N/V/F/C and go to the ED with these. Call with questions. Cont 3x/week.
--- NOTE | 2017-08-23 16:23 | PN.PCM_ITS ---
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 Code(s): L97.202 - Non-pressure chronic ulcer of unspecified calf with fat layer exposed (2) Type 2 diabetes mellitus without complications Status: Chronic Current Visit: Yes Qualifiers: Diabetes mellitus terminal system operator insulin use: unspecified terminal system operator insulin use status Qualified Code(s): E11.9 - Type 2 diabetes mellitus without complications Code(s): E11.9 - Type 2 diabetes mellitus without complications (3) Type 2 diabetes mellitus with other skin ulcer Status: Acute Current Visit: Yes Qualifiers: Diabetes mellitus chcf insulin use: unspecified terminal system operator insulin use status Code(s): E11.622 - Type 2 diabetes mellitus with other skin ulcer; L98.499 - Non -pressure chronic ulcer of skin of other sites with unspecified severity (4) Striking against or struck by other objects, initial encounter Status: Acute Current Visit: Yes Code(s): W22.8XXA - Striking against or struck by other objects, initial encounter Type of Wound Date of Service: 08/23/17 Chief Complaint: L calf ulcer History of Wound: L calf ulcer present for 2 months, non-healing likely due to diabetes, present due to strike against a walker. Pt's granddaughter has been treating it with silvercell and dry bandage daily since discharge from the hospital. Moderate clear drainage. Denies redness, pus, malodor, warmth. Minimal pain. Minimal edema. Denies N/V/F/C. 07/05--Using promogran and silvercell every other day. Improved clear drainage. Denies redness, pus, malodor, warmth. Minimal pain. Minimal edema. Denies N/V/F/C. Vascular testing scheduled for next week. 07/12--Using promogran and silvercell 3x/ week. Improved clear drainage. Denies redness, pus, malodor, warmth. Minimal pain. Minimal edema. Denies N/V/F/C. Vascular testing done, final read pending but reveals no venous insufficiency as well as triphasic waveforms ( though calcified vessels, so TOY is non-diagnostic). Pt's grand-daughter admits that the patient will not keep any compression in place, because the patient has dementia and forgets why she has a stocking on her leg (so she removes it). 07/26/17--Improved. Using promogran and silvercell every other day. Denies pus, malodor, warmth, pain. Denies N/V/F/C. 08/09--Improved. Using promogran and adaptic 3x/week. Denies pus, malodor, warmth, or pain. Denies N/V/F/C. 08/16--Improved. Using promogran and adaptic 3x/week. Denies pus, malodor, warmth, or pain. Denies N/V/F/C. Area is drying out, will add hydrogel today. 08/23--Improved, almost healed. Using promogran, hydrogel, and adaptic 3x/week. Denies pus, malodor, warmth, or pain. Denies N/V/F/C. Progress of Wound: Improved, almost healed - Physical Exam Vital Signs Temp Pulse Resp BP 97.1 F L 89 18 147/96 H 08/23/17 15:13 08/16/17 15:09 08/16/17 15:09 08/16/17 15:09 General: Alert, Oriented x3, Cooperative, No apparent distress Skin: Ulcer/ Wound - L calf with no erythema, no pus, no malodor, no increased warmth, no TTP of wound or anuradha-wound area. No clinical signs of acute bacterial infection noted. See nurse's wound assessment. Wound Measurements and Assessment ALEXUS - Nurse 1 - General Ulcer Measurement Start: 07/26/17 15:30 Freq: Status: Active Protocol: Activity Type Activity Date Activity User E-Sign Co-Sign Detail Recorded Client Recorded Date Recorded By Document 08/23/17 15:13 TN [id number] 08/23/17 15:25 TN 08/23/17 15:13 Wound Center Nurse 1 [Ulcer Assessment Protocol: ALEXUS.WD.LOC] #1 Posterior LLE -Combined with other wound No -Current Size (cm) - Length 0.7 -Current Size (cm) - Width 0.6 -Current Size (cm) - Depth 0.1 -Total Square Cm 0.42 -Photo Taken No -Epithelialization None Present -Tunneling No -Undermining/Tunneling No -Circular Undermining No -Classification - Thickness Full Thickness without Exposed Support Structure -Exudate Amt None Present (0 %) -Wound Margin Distinct, Outline Attached -Granulation Amt None Present (0 %) -Slough/Fibrin Yes -Necrotic Tissue Type Adherent Slough -Structure Exposed None/Limited to Skin Breakdown -Texture (Anuradha-wound Skin Appearance) Assessed Scarring -Moisture (Anuradha-wound Skin Appearance Assessed ) Dry/Scaly -Color (Anuradha-wound Skin Appearance) Assessed Palor -Temperature (Anuradha-wound Skin No Abnormality Appearance) (Pt Warm) -Tenderness on Palpation (Anuradha-wound No Skin Appearance) -Ulcer Cleansing Rinsed/ Irrigated with Saline -Foul Odor after Cleansing No -Anesthetic Used 4% Lidocaine Solution [Edema Assessment] -Lower Limb Edema Present No -Left Calf (cm) 28.7 -Left Ankle (cm) 21.5 WC - Nurse 2 - General Ulcer CM Notes Start: 07/26/17 15:30 Freq: Status: Active Protocol: Activity Type Activity Date Activity User E-Sign Co-Sign Detail Recorded Client Recorded Date Recorded By Document 08/23/17 16:10 MW [id number] 08/23/17 16:11 MW 08/23/17 16:10 Wound Center Nurse 2 [Procedure/Treatment] #1 Posterior LLE -Time 16:10 -Correct Patient Yes -Correct Side, Site, Position Yes -Correct Procedure Yes -Procedure Performed Yes -Type of Procedure Debridement -Clinical Debridement Selective -Post Debridement Size (cm) - Length 0.3 -Post Debridement Size (cm) - Width 0.3 -Post Debridement Size (cm) - Depth 0.1 -Total Square Cm 0.09 -Wound/Ulcer Outcome Not Healed -Ulcer Cleansing Rinsed/ Irrigated with Saline -Foul Odor after Cleansing No -Bioengineered Tissue No -Cetacaine [place] No -Bleeding Controlled with Pressure -Treatment Response Procedure Tolerated Well [See Physician Procedure note for Specifics] Pain Scale: 0-10 Numeric [Pain] -Is Patient Pain Free? Yes Debridement Note Post-Debridement Measurements/Treatment WC - Nurse 2 - General Ulcer CM Notes Start: 07/26/17 15:30 Freq: Status: Active Protocol: Activity Type Activity Date Activity User E-Sign Co-Sign Detail Recorded Client Recorded Date Recorded By Document 07/26/17 15:58 MW [id number] 07/26/17 16:03 MW Document 08/09/17 17:21 MW [id number] 08/09/17 17:21 MW Document 08/16/17 15:42 MW [id number] 08/16/17 15:44 MW Document 08/23/17 16:10 MW [id number] 08/23/17 16:11 MW 07/26/17 08/09/17 08/16/17 15:58 17:21 15:42 Wound Center Nurse 2 #1 Posterior LLE -Time 15:59 16:25 15:43 -Correct Patient Yes Yes Yes -Correct Side, Site, Position Yes Yes Yes -Correct Procedure Yes Yes Yes -Procedure Performed Yes Yes Yes -Type of Procedure Debridement Debridement Debridement -Clinical Debridement Subcutaneous Subcutaneous Subcutaneous -Post Debridement Size (cm) - Length 1.1 1.4 0.6 -Post Debridement Size (cm) - Width 1.8 1.0 0.7 -Post Debridement Size (cm) - Depth 0.1 0.2 0.1 -Total Square Cm 1.98 1.40 0.42 -Wound/Ulcer Outcome Not Healed Not Healed Not Healed -Ulcer Cleansing Rinsed/ Rinsed/ Rinsed/ Irrigated with Irrigated with Irrigated with Saline Saline Saline -Foul Odor after Cleansing No No No -Bioengineered Tissue No No No -Cetacaine [place] No No No -Bleeding Controlled with Pressure Pressure Pressure -Treatment Response Procedure Procedure Procedure Tolerated Well Tolerated Well Tolerated Well Pain Scale: 0-10 Numeric Is Patient Pain Free? Yes Yes Yes 08/23/17 16:10 Wound Center Nurse 2 #1 Posterior E -Time 16:10 -Correct Patient Yes -Correct Side, Site, Position Yes -Correct Procedure Yes -Procedure Performed Yes -Type of Procedure Debridement -Clinical Debridement Selective -Post Debridement Size (cm) - Length 0.3 -Post Debridement Size (cm) - Width 0.3 -Post Debridement Size (cm) - Depth 0.1 -Total Square Cm 0.09 -Wound/Ulcer Outcome Not Healed -Ulcer Cleansing Rinsed/ Irrigated with Saline -Foul Odor after Cleansing No -Bioengineered Tissue No -Cetacaine [place] No -Bleeding Controlled with Pressure -Treatment Response Procedure Tolerated Well Pain Scale: 0-10 Numeric Is Patient Pain Free? Yes Wound debrided: L calf Laterality: Left Wound Grade/Stage: traumatic full thickness Type of Debridement: Selective debridement Anesthesia Used: 4% Lidocaine Solution Depth: Down to and including healthy tissue Percentage of wound debrided: 100 Instrument Used: 3mm curette Tissue Removed: fibrous slough Severity: Limited To Skin Breakdown Amount of bleeding with debridement: None Bleeding Controlled with: Pressure, Compression and gauze Patient tolerated procedure well Assessment/Plan Active Problems (Last Updated 07/12/17 @ 15:31 by Sol Rodriguez) Striking against or struck by other objects, initial encounter (Acute) Type 2 diabetes mellitus with other skin ulcer (Acute) Type 2 diabetes mellitus without complications (Chronic) Ulcer of calf with fat layer exposed (Acute) Assessment: See diagnoses Plan: Selective/medical debridement of L calf ulcer as above. Switch to collagen hydrogel daily. Keep pressure off ulcer at all times. Discussed importance of tight blood sugar control, adequate nutrition especially increased protein intake to promote healing. LEAs and venous duplex reviewed. Pt has calcified vessels, if ulceration is non-healing, plan for referral to vascular surgeon for further arterial workup. Wear double layer tubigrip--pt less likely to remove to touch the ulcer. RTC 1 week. Monitor for redness, pus , malodor, warmth, inc pain, inc swelling as well as N/V/F/C and go to the ED with these. Call with questions. Cont 3x/week.
== END 2017-08-24 23:59 ==
LOC: WC 15:15
PROVIDERS: Family Provider Family Medicine Geriatric Medicine; PCP Family Medicine Geriatric Medicine; Visit Provider Podiatrist Foot & Ankle Surgery
DX: E11.622 Type 2 diabetes mellitus with other skin ulcer (principal); L97.222 Non-pressure chronic ulcer of left calf with fat layer exposed; R60.0 Localized edema; F03.90 Unspecified dementia, unspecified severity, without behavioral disturbance, psychotic disturbance, mood disturbance, and anxiety
CPT/HCPCS: 11042; 97597

== ENCOUNTER 2017-08-30 15:03 | Outpatient (RCR) | payer MEDICARE, OTHER, SELFPAY ==
[2017-08-16 15:09] VITALS: BP 147/96
[2017-08-25 00:24] VITALS: PULSE 89; RESP 18; TEMP 36.2
[2017-08-30 15:34] VITALS: BP 143/79; PULSE 79; RESP 18; TEMP 36.4; BMI 18.7
--- NOTE | 2017-08-30 16:24 | PCM.WC.PN ---
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 Pt's granddaughter has been treating it with silvercell and dry bandage daily since discharge from the hospital. Moderate clear drainage. Denies redness, pus, malodor, warmth. Minimal pain. Minimal edema. Denies N/V/F/C. 07/05--Using promogran and silvercell every other day. Improved clear drainage. Denies redness, pus, malodor, warmth. Minimal pain. Minimal edema. Denies N/V/F/C. Vascular testing scheduled for next week. 07/12--Using promogran and silvercell 3x/week. Improved clear drainage. Denies redness, pus, malodor, warmth. Minimal pain. Minimal edema. Denies N/V/F/C. Vascular testing done, final read pending but reveals no venous insufficiency as well as triphasic waveforms (though calcified vessels, so TOY is non-diagnostic). Pt's grand-daughter admits that the patient will not keep any compression in place, because the patient has dementia and forgets why she has a stocking on her leg (so she removes it). 07/26/17--Improved. Using promogran and silvercell every other day. Denies pus, malodor, warmth, pain. Denies N/V/F/C. 08/09--Improved. Using promogran and adaptic 3x/week. Denies pus, malodor, warmth, or pain. Denies N/V/F/C. 08/16--Improved. Using promogran and adaptic 3x/week. Denies pus, malodor, warmth, or pain. Denies N/V/F/C. Area is drying out, will add hydrogel today. 08/23--Improved, almost healed. Using promogran, hydrogel, and adaptic 3x/week. Denies pus, malodor, warmth, or pain. Denies N/V/F/C. 08/30--Ulcer has healed with the use of promogran, hydrogel, adaptic 3x/week. Denies pus, malodor, warmth, or pain. Denies N/V/F/C. Progress of Wound: Healed. - Physical Exam Vital Signs Temp Pulse Resp BP 97.5 F L 79 18 143/79 H 08/30/17 15:34 08/30/17 15:34 08/30/17 15:34 08/30/17 15:34 General: Alert, Cooperative, No apparent distress Skin: No breakdown, Ulcer/ Wound - Previously ulcerated area L calf covered with epithelial tissue. Wound Measurements and Assessment - Nurse 1 - General Ulcer Measurement Start: 08/30/17 15:34 Freq: Status: Active Protocol: Activity Type Activity Date Activity User E-Sign Co-Sign Detail Recorded Client Recorded Date Recorded By Document 08/30/17 15:34 DV [id number] 08/30/17 15:40 DV 08/30/17 15:34 Wound Center Nurse 1 [Ulcer Assessment Protocol: ALEXUS.WD.LOC] #1 Posterior LLE -Combined with other wound No -Current Size (cm) - Length 0.1 -Current Size (cm) - Width 0.1 -Current Size (cm) - Depth 0.1 -Total Square Cm 0.01 -Photo Taken Yes -Epithelialization Small 1-33% -Tunneling No -Undermining/Tunneling No -Circular Undermining No -Classification - Thickness Full Thickness without Exposed Support Structure -Exudate Amt None Present (0 %) -Wound Margin Distinct, Outline Attached -Granulation Amt None Present (0 %) -Granulation Quality N/A -Slough/Fibrin No -Necrosis Amt None Present (0 %) -Texture (Anuradha-wound Skin Appearance) Assessed Scarring -Moisture (Anuradha-wound Skin Appearance No Abnormality ) Dry/Scaly -Color (Anuradha-wound Skin Appearance) No Abnormality Assessed -Temperature (Anuradha-wound Skin No Abnormality Appearance) (Pt Warm) -Ulcer Cleansing Rinsed/ Irrigated with Saline -Foul Odor after Cleansing No -Anesthetic Used 4% Lidocaine Solution - Nurse 2 - General Ulcer CM Notes Start: 08/30/17 15:34 Freq: Status: Active Protocol: Activity Type Activity Date Activity User E-Sign Co-Sign Detail Recorded Client Recorded Date Recorded By Document 08/30/17 15:53 MW [id number] 08/30/17 15:54 MW 08/30/17 15:53 Wound Center Nurse 2 [Procedure/Treatment] -Time 15:53 -Correct Patient Yes -Correct Side, Site, Position Yes -Correct Procedure Yes -Procedure Performed No -Post Debridement Size (cm) - Length 0 -Post Debridement Size (cm) - Width 0 -Post Debridement Size (cm) - Depth 0 -Total Square Cm 0 -Wound/Ulcer Outcome Healed- Epithelialized -Ulcer Cleansing Rinsed/ Irrigated with Saline -Foul Odor after Cleansing No -Bioengineered Tissue No -Bleeding Controlled with NA -Treatment Response Procedure Tolerated Well [See Physician Procedure note for Specifics] Pain Scale: 0-10 Numeric [Pain] -Is Patient Pain Free? Yes Debridement Note Post-Debridement Measurements/Treatment - Nurse 2 - General Ulcer CM Notes Start: 08/30/17 15:34 Freq: Status: Active Protocol: Activity Type Activity Date Activity User E-Sign Co-Sign Detail Recorded Client Recorded Date Recorded By Document 08/30/17 15:53 MW [id number] 08/30/17 15:54 MW 08/30/17 15:53 Wound Center Nurse 2 #1 Posterior LLE -Time 15:53 -Correct Patient Yes -Correct Side, Site, Position Yes -Correct Procedure Yes -Procedure Performed No -Post Debridement Size (cm) - Length 0 -Post Debridement Size (cm) - Width 0 -Post Debridement Size (cm) - Depth 0 -Total Square Cm 0 -Wound/Ulcer Outcome Healed- Epithelialized -Ulcer Cleansing Rinsed/ Irrigated with Saline -Foul Odor after Cleansing No -Bioengineered Tissue No -Bleeding Controlled with NA -Treatment Response Procedure Tolerated Well Pain Scale: 0-10 Numeric Is Patient Pain Free? Yes No debridement was completed today Assessment/Plan Active Problems (Last Updated 07/12/17 @ 15:31 by Sol Rodriguez) Striking against or struck by other objects, initial encounter (Acute) Assessment: See diagnoses Plan: Exam. A total of 15 minutes was spent [id number] with the patient, and over half of that time was spent on counseling, coordination of care, and discussing her diagnoses. D/w pt and her daughter that healed ulcers are fragile and prone to re-ulceration, so she needs to protect the area well. Pt has home compression stockings, restart these. Apply protective ointment such as aquaphor BID indefinitely. No longer has any open wounds on the lower extremities, return here as needed. Call with questions regarding this healed ulcer.
--- NOTE | 2017-08-30 16:28 | PN.PCM_ITS ---
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 Pt's granddaughter has been treating it with silvercell and dry bandage daily since discharge from the hospital. Moderate clear drainage. Denies redness, pus, malodor, warmth. Minimal pain. Minimal edema. Denies N/V/F/C. 07/05--Using promogran and silvercell every other day. Improved clear drainage. Denies redness, pus, malodor, warmth. Minimal pain. Minimal edema. Denies N/V/F/C. Vascular testing scheduled for next week. 07/12--Using promogran and silvercell 3x/ week. Improved clear drainage. Denies redness, pus, malodor, warmth. Minimal pain. Minimal edema. Denies N/V/F/C. Vascular testing done, final read pending but reveals no venous insufficiency as well as triphasic waveforms ( though calcified vessels, so TOY is non-diagnostic). Pt's grand-daughter admits that the patient will not keep any compression in place, because the patient has dementia and forgets why she has a stocking on her leg (so she removes it). 07/26/17--Improved. Using promogran and silvercell every other day. Denies pus, malodor, warmth, pain. Denies N/V/F/C. 08/09--Improved. Using promogran and adaptic 3x/week. Denies pus, malodor, warmth, or pain. Denies N/V/F/C. 08/16--Improved. Using promogran and adaptic 3x/week. Denies pus, malodor, warmth, or pain. Denies N/V/F/C. Area is drying out, will add hydrogel today. 08/23--Improved, almost healed. Using promogran, hydrogel, and adaptic 3x/week. Denies pus, malodor, warmth, or pain. Denies N/V/F/C. 08/30-- Ulcer has healed with the use of promogran, hydrogel, adaptic 3x/week. Denies pus, malodor, warmth, or pain. Denies N/V/F/C. Progress of Wound: Healed. - Physical Exam Vital Signs Temp Pulse Resp BP 97.5 F L 79 18 143/79 H 08/30/17 15:34 08/30/17 15:34 08/30/17 15:34 08/30/17 15:34 General: Alert, Cooperative, No apparent distress Skin: No breakdown, Ulcer/ Wound - Previously ulcerated area L calf covered with epithelial tissue. Wound Measurements and Assessment - Nurse 1 - General Ulcer Measurement Start: 08/30/17 15:34 Freq: Status: Active Protocol: Activity Type Activity Date Activity User E-Sign Co-Sign Detail Recorded Client Recorded Date Recorded By Document 08/30/17 15:34 DV [id number] 08/30/17 15:40 DV 08/30/17 15:34 Wound Center Nurse 1 [Ulcer Assessment Protocol: ALEXUS.WD.LOC] #1 Posterior LLE -Combined with other wound No -Current Size (cm) - Length 0.1 -Current Size (cm) - Width 0.1 -Current Size (cm) - Depth 0.1 -Total Square Cm 0.01 -Photo Taken Yes -Epithelialization Small 1-33% -Tunneling No -Undermining/Tunneling No -Circular Undermining No -Classification - Thickness Full Thickness without Exposed Support Structure -Exudate Amt None Present (0 %) -Wound Margin Distinct, Outline Attached -Granulation Amt None Present (0 %) -Granulation Quality N/A -Slough/Fibrin No -Necrosis Amt None Present (0 %) -Texture (Anuradha-wound Skin Appearance) Assessed Scarring -Moisture (Anuradha-wound Skin Appearance No Abnormality ) Dry/Scaly -Color (Anuradha-wound Skin Appearance) No Abnormality Assessed -Temperature (Anuradha-wound Skin No Abnormality Appearance) (Pt Warm) -Ulcer Cleansing Rinsed/ Irrigated with Saline -Foul Odor after Cleansing No -Anesthetic Used 4% Lidocaine Solution - Nurse 2 - General Ulcer CM Notes Start: 08/30/17 15:34 Freq: Status: Active Protocol: Activity Type Activity Date Activity User E-Sign Co-Sign Detail Recorded Client Recorded Date Recorded By Document 08/30/17 15:53 MW [id number] 08/30/17 15:54 MW 08/30/17 15:53 Wound Center Nurse 2 [Procedure/Treatment] -Time 15:53 -Correct Patient Yes -Correct Side, Site, Position Yes -Correct Procedure Yes -Procedure Performed No -Post Debridement Size (cm) - Length 0 -Post Debridement Size (cm) - Width 0 -Post Debridement Size (cm) - Depth 0 -Total Square Cm 0 -Wound/Ulcer Outcome Healed- Epithelialized -Ulcer Cleansing Rinsed/ Irrigated with Saline -Foul Odor after Cleansing No -Bioengineered Tissue No -Bleeding Controlled with NA -Treatment Response Procedure Tolerated Well [See Physician Procedure note for Specifics] Pain Scale: 0-10 Numeric [Pain] -Is Patient Pain Free? Yes Debridement Note Post-Debridement Measurements/Treatment - Nurse 2 - General Ulcer CM Notes Start: 08/30/17 15:34 Freq: Status: Active Protocol: Activity Type Activity Date Activity User E-Sign Co-Sign Detail Recorded Client Recorded Date Recorded By Document 08/30/17 15:53 MW [id number] 08/30/17 15:54 MW 08/30/17 15:53 Wound Center Nurse 2 #1 Posterior LLE -Time 15:53 -Correct Patient Yes -Correct Side, Site, Position Yes -Correct Procedure Yes -Procedure Performed No -Post Debridement Size (cm) - Length 0 -Post Debridement Size (cm) - Width 0 -Post Debridement Size (cm) - Depth 0 -Total Square Cm 0 -Wound/Ulcer Outcome Healed- Epithelialized -Ulcer Cleansing Rinsed/ Irrigated with Saline -Foul Odor after Cleansing No -Bioengineered Tissue No -Bleeding Controlled with NA -Treatment Response Procedure Tolerated Well Pain Scale: 0-10 Numeric Is Patient Pain Free? Yes No debridement was completed today Assessment/Plan Active Problems (Last Updated 07/12/17 @ 15:31 by Sol Rodriguez) Striking against or struck by other objects, initial encounter (Acute) Assessment: See diagnoses Plan: Exam. A total of 15 minutes was spent [id number] with the patient, and over half of that time was spent on counseling, coordination of care, and discussing her diagnoses. D/w pt and her daughter that healed ulcers are fragile and prone to re-ulceration, so she needs to protect the area well. Pt has home compression stockings, restart these. Apply protective ointment such as aquaphor BID indefinitely. No longer has any open wounds on the lower extremities, return here as needed. Call with questions regarding this healed ulcer.
== END 2017-09-21 23:59 ==
LOC: WC 15:03
PROVIDERS: Family Provider Family Medicine Geriatric Medicine; PCP Family Medicine Geriatric Medicine; Visit Provider Podiatrist Foot & Ankle Surgery
DX: Z09 Encounter for follow-up examination after completed treatment for conditions other than malignant neoplasm (principal); E11.9 Type 2 diabetes mellitus without complications; F03.90 Unspecified dementia, unspecified severity, without behavioral disturbance, psychotic disturbance, mood disturbance, and anxiety
CPT/HCPCS: 99212; G0463

== ENCOUNTER → 2017-10-19 13:39 | Outpatient (CLI) | payer MEDICARE, OTHER, SELFPAY ==
[2017-10-19 17:14] LABS: Absolute Neutrophil Count 3.8 X10^3/uL (2.0-7.7); Basophil# 0.02 X10^3/uL; Basophil% 0.3 % (0-1); Eosinophil# 0.14 X10^3/uL; Eosinophils% 2.3 % (0-5); Hematocrit 34.7 % (37-47); Hemoglobin 10.8 g/dl (12.0-15.0); Lymphocyte % 21.6 % (19-41); Mean Corp Hgb Conc 31.1 g/gl (32-36); Mean Corpuscular Hgb 26.3 pg (27.0-32.0); Mean Corpuscular Volume 84.6 fL (81-99); Mean Platelet Vol. 11.3 fl (6.2-12.0); Monocyte# 0.72 X10^3/uL; Monocyte% 11.9 % (0-10); Neutrophil # 3.84 X10^3/uL (2.7-7.7); Neutrophil % 63.7 % (47-70); POSITIVE COUNT NO; POSITIVE DIFFERENTIAL NO; POSITIVE MORPHOLOGY NO; Platelet Count 287 K/mm3 (150-450); RBC Distribution Width CV 14.5 % (11.6-14.6)
[2017-10-19 17:34] LABS: Vitamin D,25 Hydroxy 19.5 ng/mL (29.95-100.01)
[2017-10-19 17:40] LABS: AST(SGOT) 23 U/L (15-37); Alanine Aminotransfer ALT/SGPT 23 U/L (13-56); Albumin, Serum 3.4 g/dL (3.2-5.0); Alkaline Phosphatase 67 U/L (45-117); Anion Gap 9 (5-15); BUN 13 mg/dL (7-18); BUN/Creat Ratio 15.2 RATIO (10-20); Calcium,Total 8.8 mg/dL (8.5-10.1); Chloride 100 mmol/L (98-107); Creatinine, Serum 0.86 mg/dL (0.55-1.02); EST Glomerular Filtration Rate 68 mL/min (>60); Est Glom Filt Rate - Afr Amer 82 mL/min (>60); Globulin 3.4 g/dL (2.2-4.2); Glucose 118 mg/dL (74-106); Potassium 3.8 mmol/L (3.5-5.1); Protein, Total 6.8 g/dL (6.4-8.2); Sodium Level 136 mmol/L (136-145); Thyroid Stim Hormone (TSH) 1.45 uIU/mL (0.358-3.74)
== END ==
PROVIDERS: Family Provider Family Medicine Geriatric Medicine; PCP Family Medicine Geriatric Medicine; Visit Provider Family Medicine Geriatric Medicine
DX: I10 Essential (primary) hypertension (principal); E11.9 Type 2 diabetes mellitus without complications; E55.9 Vitamin D deficiency, unspecified
CPT/HCPCS: 36415; 80053; 82306; 84443; 85025

== ENCOUNTER → 2018-02-15 16:09 | Outpatient (CLI) | payer MEDICARE, OTHER, SELFPAY | PROVIDERS: Family Provider Family Medicine Geriatric Medicine; PCP Family Medicine Geriatric Medicine; Visit Provider Family Medicine Geriatric Medicine | DX: N39.0 Urinary tract infection, site not specified (principal) | CPT/HCPCS: 87086; 87088 ==

== ENCOUNTER 2018-02-17 09:23 | Outpatient (RCR) | payer MEDICARE, OTHER, SELFPAY ==
[2018-02-17 10:07] VITALS: BP 155/82; PULSE 79; RESP 16; TEMP 36; BMI 19.7
--- NOTE | 2018-02-17 11:54 | HP.PCM_ITS ---
(1) Leg wound, left Status: Acute Current Visit: No Code(s): S81.802A - Unspecified open wound, left lower leg, initial encounter (2) Striking against or struck by other objects, initial encounter Status: Acute Current Visit: No Code(s): W22.8XXA - Striking against or struck by other objects, initial encounter (3) Ulcer of calf with fat layer exposed Status: Acute Current Visit: No Qualifiers: Code(s): L97.202 - Non-pressure chronic ulcer of unspecified calf with fat layer exposed (4) Dementia Status: Chronic Current Visit: Yes Qualifiers: Alzheimer's disease onset: early-onset Code(s): F03.90 - Unspecified dementia without behavioral disturbance (5) TIA (transient ischemic attack) Status: Chronic Current Visit: Yes (6) Non-pressure chronic ulcer of left calf with fat layer exposed Status: Resolved Current Visit: Yes Code(s): L97.222 - Non-pressure chronic ulcer of left calf with fat layer exposed (7) Type 2 diabetes mellitus with other skin ulcer Status: Resolved Current Visit: Yes Code(s): E11.622 - Type 2 diabetes mellitus with other skin ulcer; L98.499 - Non-pressure chronic ulcer of skin of other sites with unspecified severity History of Present Illness Date of Service: 02/17/18 Chief Complaint: L calf ulcer History of Wound: 82-year-old white female with dementia living with her daughter. Had been staying with other relatives for a couple of days and had fallen between the bed and the wall. Daughter seems to think she might have developed the ulcer from the fall. 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 Past Medical History Past Medical History: Chronic Problems (Last Updated 07/12/17 @ 15:31 by Sol Rodriguez) Type 2 diabetes mellitus without complications (Chronic) TIA (transient ischemic attack) (Chronic) GERD (gastroesophageal reflux disease) (Chronic) Dementia (Chronic) Hypertension (Chronic) Past Medical History: Open ulcer left lower leg calf nonhealing Surgical History: no surgical history Allergies/Adverse Reactions: Allergies No Known Allergies Allergy (Verified 07/12/17 15:26) Home Medications: Ambulatory Orders Medication Instructions Recorded Pantoprazole Sodium [Protonix] 40 mg PO DAILY 12/25/16 Galantamine HBr [Razadyne] 8 mg PO BID 12/26/16 Iron Poly/Vit C [Niferex-150] 150 mg PO DAILY 06/08/17 clopidogrel 75 mg tablet 75 mg PO DAILY 07/12/17 Amlodipine [Norvasc] 5 mg PO DAILY 02/17/18 Atorvastatin Calcium 20 mg PO DAILY 02/17/18 Ergocalciferol (Vitamin D2) 1.25 mg PO QMONTH 02/17/18 [Ergocal] Metformin HCl 500 mg PO BID 02/17/18 Paroxetine [Paxil] 10 mg PO DAILY 02/17/18 Quetiapine Fumarate [Seroquel] 25 mg PO QHS 02/17/18 - Family History Maternal Family History: Family History (Last Updated 07/12/17 @ 15:31 by Sol Rodriguez) Other Hypercholesterolemia Hypertension No pertinent history Paternal Family History: Family History (Last Updated 07/12/17 @ 15:31 by Sol Rodriguez) Other Hypercholesterolemia Hypertension No pertinent history Lives: With Family Smoking Status: Never smoker Tobacco Use: Non-smoker Alcohol: None Drugs: None Review of Systems Constitutional: Denies: Chills, Fever Eyes: Denies: Blurred vision, Drainage, Pain HEENT: Denies: Difficulty Hearing, Difficulty Swallowing, Sore Throat, Visual Changes Cardiovascular: Denies: Chest Pain, Palpitations, Syncope Respiratory: Denies: Cough, Shortness of Breath Gastrointestinal: Denies: Abdominal Pain, Nausea, Vomiting Genitourinary: Denies: Dysuria, Frequency Musculoskeletal: Denies: Joint Pain, Muscle pain Skin: Reports: - - Ulcer open left lower calf. Denies: Jaundice, Rash Neurological: Denies: Balance problems, Change in Speech, Difficulty swallowing , Focal weakness Psychiatric: Denies: Anxiety, Depression Endocrine: Denies: Change in Body Habitus Hematologic/ Lymphatic: Denies: Adenopathy - Physical Exam Vital Signs Temp Pulse Resp BP 96.8 F L 79 16 155/82 H 02/17/18 10:07 02/17/18 10:07 02/17/18 10:07 02/17/18 10:07 General: Oriented x3, Cooperative, Well developed HEENT: Atraumatic, PERRLA Oral: Moist Mucosa Neck: Supple, No JVD Lungs: Clear to auscultation, Normal air movement Cardiovascular: Regular rate, Regular Rhythm Abdomen: Bowel Sounds Present, Soft, Non Tender, No Hepato-splenomegaly Extremities: No clubbing, No edema Skin: Ulcer/ Wound Wound Measurements and Assessment WC - Nurse 1 - General Ulcer Measurement Start: 02/17/18 09:28 Freq: Status: Active Protocol: Activity Type Activity Date Activity User E-Sign Co-Sign Detail Recorded Client Recorded Date Recorded By Document 02/17/18 10:07 [id number] 02/17/18 10:17 02/17/18 10:07 Wound Center Nurse 1 [Ulcer Assessment] #2 POSTERIOR LLE -Combined with other wound No -Current Size (cm) - Length 0.8 -Current Size (cm) - Width 0.7 -Current Size (cm) - Depth 0.3 -Total Square Cm 0.56 -Date of Last Picture (Recall this 02/17/18 field) -Photo Taken Yes -Tunneling No -Undermining/Tunneling No -Circular Undermining No -Exudate Amt Small (1-33%) -Exudate Type Serosanguineous -Wound Margin Distinct, Outline Attached -Granulation Amt Medium (34-66%) -Granulation Quality [place] -Slough/Fibrin Yes -Necrosis Amt None Present (0 %) -Necrotic Tissue Type Adherent Slough -Structure Exposed None/Limited to Skin Breakdown -Texture (Anuradha-wound Skin Appearance) Assessed Scarring -Moisture (Anuradha-wound Skin Appearance Assessed ) Maceration -Color (Anuradha-wound Skin Appearance) No Abnormality Assessed -Temperature (Anuradha-wound Skin No Abnormality Appearance) (Pt Warm) -Tenderness on Palpation (Anuradha-wound No Skin Appearance) -Ulcer Cleansing Rinsed/ Irrigated with Saline -Foul Odor after Cleansing No -Anesthetic Used 4% Lidocaine Solution [Edema Assessment] -Lower Limb Edema Present No -Right Calf (cm) 30.5 -Right Ankle (cm) 20.1 -Left Calf (cm) 31.0 -Left Ankle (cm) 19.7 Musculoskeletal: No Tenderness to Palpation of Joints or Extremities Lymphatic: No Cervical, Supraclavicular, or Inguinal Adenopathy Neurological: Cranial nerves II-XII grossly intact, Neuro grossly intact Psych/Mental Status: Normal Affect, Appropriate, Alert and oriented to time, place, person, mood and affect Debridement Note Wound debrided: Left lower leg calf ulcer Type of Debridement: Excisional debridement Anesthesia Used: 5% Lidocaine Gel Depth: Down to and including healthy tissue, in the subcutaneous layer Percentage of wound debrided: 100 Instrument Used: 5mm curette Tissue Removed: Slough and fibrin Severity: Fat Layer Exposed Amount of bleeding with debridement: Mild Bleeding Controlled with: Compression and gauze Patient tolerated procedure well Assessment/Plan Anaerobic aerobic cultures lab work CBC with differential and prealbumin Active Problems (Last Updated 07/12/17 @ 15:31 by Sol Rodriguez) TIA (transient ischemic attack) (Chronic) Dementia (Chronic) Assessment: Open ulcer left lower calf nonhealing. Dementia. TIAs Plan: Wash area with Hibiclens. Apply Promogran to the area moistened with gauze and tape. Cultures taken will call with results. Patient on an antibiotic for her urinary tract infection. Follow-up in 1 week
[2018-02-17 16:28] LABS: Absolute Lymphocyte Count 1.07 X10^3/ul (0.83-4.51); Absolute Neutrophil Count 2.5 X10^3/uL (2.0-7.7); Basophil# 0.01 X10^3/uL; Basophil% 0.2 % (0-1); Eosinophil# 0.17 X10^3/uL; Eosinophils% 3.8 % (0-5); Hematocrit 29.8 % (37-47); Hemoglobin 8.8 g/dl (12.0-15.0); Lymphocyte # 1.07 X10^3/ul (4.0); Lymphocyte % 23.7 % (19-41); Mean Corp Hgb Conc 29.5 g/gl (32-36); Mean Corpuscular Hgb 23.2 pg (27.0-32.0); Mean Corpuscular Volume 78.4 fL (81-99); Mean Platelet Vol. 10.4 fl (6.2-12.0); Monocyte# 0.73 X10^3/uL; Monocyte% 16.2 % (0-10); Neutrophil # 2.53 X10^3/uL (2.7-7.7); Neutrophil % 56.1 % (47-70); Platelet Count 309 K/mm3 (150-450); RBC Distribution Width CV 16.1 % (11.6-14.6); RBC Distribution Width SD 46.4 fl (35.1-43.9); White Blood Count 4.5 K/mm3 (4.4-11.0)
[2018-02-17 16:45] LABS: POSITIVE COUNT NO; POSITIVE DIFFERENTIAL NO; POSITIVE MORPHOLOGY NO
== END 2018-02-21 23:59 ==
LOC: WC 09:23
PROVIDERS: Family Provider Family Medicine Geriatric Medicine; PCP Family Medicine Geriatric Medicine; Visit Provider Nurse Practitioner
DX: E11.622 Type 2 diabetes mellitus with other skin ulcer (principal); G30.9 Alzheimer's disease, unspecified; F02.80 Dementia in other diseases classified elsewhere, unspecified severity, without behavioral disturbance, psychotic disturbance, mood disturbance, and anxiety; K21.9 Gastro-esophageal reflux disease without esophagitis; I10 Essential (primary) hypertension; L97.222 Non-pressure chronic ulcer of left calf with fat layer exposed
CPT/HCPCS: 11042; 84134; 85025; 87070; 87075; 87205; 99212; G0463

== ENCOUNTER 2018-03-02 14:45 | Outpatient (RCR) | payer MEDICARE, OTHER, SELFPAY ==
[2018-02-22 01:33] VITALS: BP 155/82; PULSE 79; RESP 16; TEMP 36
[2018-02-24 10:21] VITALS: BP 152/73; PULSE 96; RESP 14; TEMP 36.9
--- NOTE | 2018-02-24 11:20 | PCM.WC.PN ---
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 Had been staying with other relatives for a couple of days and had fallen between the bed and the wall. Daughter seems to think she might have developed the ulcer from the fall. 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 Progress of Wound: Left posterior calf ulcer is much smaller than it was last week half the size. Tolerating treatment well not picking. Should be hopefully healed by next week. Currently using Promogran for healing. - Physical Exam Vital Signs Temp Pulse Resp BP 98.4 F 96 14 152/73 H 02/24/18 10:21 02/24/18 10:21 02/24/18 10:21 02/24/18 10:21 General: Oriented x3, Cooperative, Well developed HEENT: Atraumatic, PERRLA Oral: Moist Mucosa Neck: Supple, No JVD Lungs: Clear to auscultation, Normal air movement Cardiovascular: Regular rate, Regular Rhythm Abdomen: Bowel Sounds Present, Soft, Non Tender, No Hepato-splenomegaly Extremities: No clubbing, No edema, - - Posterior calf ulcer Wound Measurements and Assessment WC - Nurse 1 - General Ulcer Measurement Start: 02/24/18 10:14 Freq: Status: Active Protocol: Activity Type Activity Date Activity User E-Sign Co-Sign Detail Recorded Client Recorded Date Recorded By Document 02/24/18 10:21 [id number] 02/24/18 10:23 02/24/18 10:21 Wound Center Nurse 1 [Ulcer Assessment] #2 POSTERIOR LLE -Combined with other wound No -Current Size (cm) - Length 0.4 -Current Size (cm) - Width 0.3 -Current Size (cm) - Depth 0.1 -Total Square Cm 0.12 -Photo Taken No -Epithelialization Medium 34-66% -Tunneling No -Undermining/Tunneling No -Circular Undermining No -Exudate Amt None Present (0 %) -Wound Margin Thickened -Granulation Amt None Present (0 %) -Slough/Fibrin Yes -Necrosis Amt None Present (0 %) -Necrotic Tissue Type Adherent Slough -Texture (Anuradha-wound Skin Appearance) Assessed Scarring -Moisture (Anuradha-wound Skin Appearance Dry/Scaly ) -Color (Anuradha-wound Skin Appearance) No Abnormality Assessed -Temperature (Anuradha-wound Skin No Abnormality Appearance) (Pt Warm) -Tenderness on Palpation (Anuradha-wound No Skin Appearance) -Ulcer Cleansing Rinsed/ Irrigated with Saline -Foul Odor after Cleansing No -Anesthetic Used 4% Lidocaine Solution [Edema Assessment] -Lower Limb Edema Present NA WC - Nurse 2 - General Ulcer CM Notes Start: 02/24/18 10:14 Freq: Status: Active Protocol: Activity Type Activity Date Activity User E-Sign Co-Sign Detail Recorded Client Recorded Date Recorded By Document 02/24/18 10:46 MW [id number] 02/24/18 10:49 MW 02/24/18 10:46 Wound Center Nurse 2 [Procedure/Treatment] #2 POSTERIOR LLE -Time 10:47 -Correct Patient Yes -Correct Side, Site, Position Yes -Correct Procedure Yes -Procedure Performed Yes -Type of Procedure Debridement -Clinical Debridement Subcutaneous -Post Debridement Size (cm) - Length 0.3 -Post Debridement Size (cm) - Width 0.1 -Post Debridement Size (cm) - Depth 0.1 -Total Square Cm 0.03 -Wound/Ulcer Outcome Not Healed -Ulcer Cleansing Rinsed/ Irrigated with Saline -Foul Odor after Cleansing No -Bioengineered Tissue No -Bleeding Controlled with Pressure -Treatment Response Procedure Tolerated Well [See Physician Procedure note for Specifics] Pain Scale: 0-10 Numeric [Pain] -Is Patient Pain Free? Yes Musculoskeletal: No Tenderness to Palpation of Joints or Extremities Lymphatic: No Cervical, Supraclavicular, or Inguinal Adenopathy Neurological: Cranial nerves II-XII grossly intact, Neuro grossly intact Psych/Mental Status: Normal Affect, Appropriate Debridement Note Post-Debridement Measurements/Treatment WC - Nurse 2 - General Ulcer CM Notes Start: 02/24/18 10:14 Freq: Status: Active Protocol: Activity Type Activity Date Activity User E-Sign Co-Sign Detail Recorded Client Recorded Date Recorded By Document 02/24/18 10:46 MW [id number] 02/24/18 10:49 MW 02/24/18 10:46 Wound Center Nurse 2 #2 POSTERIOR LLE -Time 10:47 -Correct Patient Yes -Correct Side, Site, Position Yes -Correct Procedure Yes -Procedure Performed Yes -Type of Procedure Debridement -Clinical Debridement Subcutaneous -Post Debridement Size (cm) - Length 0.3 -Post Debridement Size (cm) - Width 0.1 -Post Debridement Size (cm) - Depth 0.1 -Total Square Cm 0.03 -Wound/Ulcer Outcome Not Healed -Ulcer Cleansing Rinsed/ Irrigated with Saline -Foul Odor after Cleansing No -Bioengineered Tissue No -Bleeding Controlled with Pressure -Treatment Response Procedure Tolerated Well Pain Scale: 0-10 Numeric Is Patient Pain Free? Yes Wound debrided: Left posterior calf Type of Debridement: Excisional debridement Anesthesia Used: 5% Lidocaine Gel Depth: Down to and including healthy tissue Percentage of wound debrided: 100 Instrument Used: 5mm curette Tissue Removed: Fibrin Severity: Limited To Skin Breakdown Amount of bleeding with debridement: None Bleeding Controlled with: Pressure Patient tolerated procedure well Assessment/Plan Active Problems (Last Updated 07/12/17 @ 15:31 by Sol Rodriguez) Leg wound, left (Acute) Assessment: Open ulcer left lower calf nonhealing. Dementia. TIAs Plan: Wash area with Hibiclens. Apply Promogran to the area moistened with gauze and tape. Cultures taken will call with results. Patient on an antibiotic for her urinary tract infection. Follow-up in 1 week
--- NOTE | 2018-02-24 11:23 | PN.PCM_ITS ---
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 Had been staying with other relatives for a couple of days and had fallen between the bed and the wall. Daughter seems to think she might have developed the ulcer from the fall. 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 Progress of Wound: Left posterior calf ulcer is much smaller than it was last week half the size. Tolerating treatment well not picking. Should be hopefully healed by next week. Currently using Promogran for healing. - Physical Exam Vital Signs Temp Pulse Resp BP 98.4 F 96 14 152/73 H 02/24/18 10:21 02/24/18 10:21 02/24/18 10:21 02/24/18 10:21 General: Oriented x3, Cooperative, Well developed HEENT: Atraumatic, PERRLA Oral: Moist Mucosa Neck: Supple, No JVD Lungs: Clear to auscultation, Normal air movement Cardiovascular: Regular rate, Regular Rhythm Abdomen: Bowel Sounds Present, Soft, Non Tender, No Hepato-splenomegaly Extremities: No clubbing, No edema, - - Posterior calf ulcer Wound Measurements and Assessment WC - Nurse 1 - General Ulcer Measurement Start: 02/24/18 10:14 Freq: Status: Active Protocol: Activity Type Activity Date Activity User E-Sign Co-Sign Detail Recorded Client Recorded Date Recorded By Document 02/24/18 10:21 [id number] 02/24/18 10:23 02/24/18 10:21 Wound Center Nurse 1 [Ulcer Assessment] #2 POSTERIOR LLE -Combined with other wound No -Current Size (cm) - Length 0.4 -Current Size (cm) - Width 0.3 -Current Size (cm) - Depth 0.1 -Total Square Cm 0.12 -Photo Taken No -Epithelialization Medium 34-66% -Tunneling No -Undermining/Tunneling No -Circular Undermining No -Exudate Amt None Present (0 %) -Wound Margin Thickened -Granulation Amt None Present (0 %) -Slough/Fibrin Yes -Necrosis Amt None Present (0 %) -Necrotic Tissue Type Adherent Slough -Texture (Anuradha-wound Skin Appearance) Assessed Scarring -Moisture (Anuradha-wound Skin Appearance Dry/Scaly ) -Color (Anuradha-wound Skin Appearance) No Abnormality Assessed -Temperature (Anuradha-wound Skin No Abnormality Appearance) (Pt Warm) -Tenderness on Palpation (Anuradha-wound No Skin Appearance) -Ulcer Cleansing Rinsed/ Irrigated with Saline -Foul Odor after Cleansing No -Anesthetic Used 4% Lidocaine Solution [Edema Assessment] -Lower Limb Edema Present NA WC - Nurse 2 - General Ulcer CM Notes Start: 02/24/18 10:14 Freq: Status: Active Protocol: Activity Type Activity Date Activity User E-Sign Co-Sign Detail Recorded Client Recorded Date Recorded By Document 02/24/18 10:46 MW [id number] 02/24/18 10:49 MW 02/24/18 10:46 Wound Center Nurse 2 [Procedure/Treatment] #2 POSTERIOR LLE -Time 10:47 -Correct Patient Yes -Correct Side, Site, Position Yes -Correct Procedure Yes -Procedure Performed Yes -Type of Procedure Debridement -Clinical Debridement Subcutaneous -Post Debridement Size (cm) - Length 0.3 -Post Debridement Size (cm) - Width 0.1 -Post Debridement Size (cm) - Depth 0.1 -Total Square Cm 0.03 -Wound/Ulcer Outcome Not Healed -Ulcer Cleansing Rinsed/ Irrigated with Saline -Foul Odor after Cleansing No -Bioengineered Tissue No -Bleeding Controlled with Pressure -Treatment Response Procedure Tolerated Well [See Physician Procedure note for Specifics] Pain Scale: 0-10 Numeric [Pain] -Is Patient Pain Free? Yes Musculoskeletal: No Tenderness to Palpation of Joints or Extremities Lymphatic: No Cervical, Supraclavicular, or Inguinal Adenopathy Neurological: Cranial nerves II-XII grossly intact, Neuro grossly intact Psych/Mental Status: Normal Affect, Appropriate Debridement Note Post-Debridement Measurements/Treatment WC - Nurse 2 - General Ulcer CM Notes Start: 02/24/18 10:14 Freq: Status: Active Protocol: Activity Type Activity Date Activity User E-Sign Co-Sign Detail Recorded Client Recorded Date Recorded By Document 02/24/18 10:46 MW [id number] 02/24/18 10:49 MW 02/24/18 10:46 Wound Center Nurse 2 #2 POSTERIOR LLE -Time 10:47 -Correct Patient Yes -Correct Side, Site, Position Yes -Correct Procedure Yes -Procedure Performed Yes -Type of Procedure Debridement -Clinical Debridement Subcutaneous -Post Debridement Size (cm) - Length 0.3 -Post Debridement Size (cm) - Width 0.1 -Post Debridement Size (cm) - Depth 0.1 -Total Square Cm 0.03 -Wound/Ulcer Outcome Not Healed -Ulcer Cleansing Rinsed/ Irrigated with Saline -Foul Odor after Cleansing No -Bioengineered Tissue No -Bleeding Controlled with Pressure -Treatment Response Procedure Tolerated Well Pain Scale: 0-10 Numeric Is Patient Pain Free? Yes Wound debrided: Left posterior calf Type of Debridement: Excisional debridement Anesthesia Used: 5% Lidocaine Gel Depth: Down to and including healthy tissue Percentage of wound debrided: 100 Instrument Used: 5mm curette Tissue Removed: Fibrin Severity: Limited To Skin Breakdown Amount of bleeding with debridement: None Bleeding Controlled with: Pressure Patient tolerated procedure well Assessment/Plan Active Problems (Last Updated 07/12/17 @ 15:31 by Sol Rodriguez) Leg wound, left (Acute) Assessment: Open ulcer left lower calf nonhealing. Dementia. TIAs Plan: Wash area with Hibiclens. Apply Promogran to the area moistened with gauze and tape. Cultures taken will call with results. Patient on an antibiotic for her urinary tract infection. Follow-up in 1 week
[2018-03-02 15:21] VITALS: BP 151/82; PULSE 99; RESP 16; TEMP 35.9
--- NOTE | 2018-03-02 18:05 | PCM.WC.PN ---
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 Had been staying with other relatives for a couple of days and had fallen between the bed and the wall. Daughter seems to think she might have developed the ulcer from the fall. 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 Progress of Wound: Left posterior calf ulcer has completely healed with using Promogran for healing. Denies any signs and symptoms of infection. Denies any fever, chills, nausea, vomitting, SOB, CP or pressure, syncope or presencopal episodes. - Physical Exam Vital Signs Temp Pulse Resp BP 96.7 F L 99 16 151/82 H 03/02/18 15:21 03/02/18 15:21 03/02/18 15:21 03/02/18 15:21 General: Alert, Oriented x3, Cooperative, No apparent distress HEENT: Atraumatic Oral: Moist Mucosa Lungs: Clear to auscultation, Normal air movement Cardiovascular: Regular rate, Regular Rhythm Abdomen: Soft, Non Tender Extremities: No clubbing, No cyanosis, No edema Skin: Ulcer/ Wound - left calf ulcer has healed, no signs of infection at this time Neurological: Neuro grossly intact Psych/Mental Status: Normal Affect, Appropriate, Alert and oriented to time, place, person, mood and affect Debridement Note Post-Debridement Measurements/Treatment WC - Nurse 2 - General Ulcer CM Notes Start: 02/24/18 10:14 Freq: Status: Active Protocol: Activity Type Activity Date Activity User E-Sign Co-Sign Detail Recorded Client Recorded Date Recorded By Document 02/24/18 10:46 MW [id number] 02/24/18 10:49 MW Document 03/02/18 16:02 CS [id number] 03/02/18 16:03 CS Document 03/02/18 16:02 CS [id number] 03/02/18 16:03 CS 02/24/18 03/02/18 10:46 16:02 Wound Center Nurse 2 #2 POSTERIOR LLE -Time 10:47 16:02 -Correct Patient Yes No -Correct Side, Site, Position Yes No -Correct Procedure Yes No -Procedure Performed Yes No -Type of Procedure Debridement -Clinical Debridement Subcutaneous -Post Debridement Size (cm) - Length 0.3 -Post Debridement Size (cm) - Width 0.1 -Post Debridement Size (cm) - Depth 0.1 -Total Square Cm 0.03 -Wound/Ulcer Outcome Not Healed -Ulcer Cleansing Rinsed/ Irrigated with Saline -Foul Odor after Cleansing No -Bioengineered Tissue No -Bleeding Controlled with Pressure -Treatment Response Procedure Tolerated Well Pain Scale: 0-10 Numeric Is Patient Pain Free? Yes Yes No debridement was completed today Assessment/Plan Assessment: Open ulcer left lower calf nonhealing. Dementia. TIAs Plan: Left calf ulcer has healed, protect with gauze and tape. Cultures taken prev were negative, informed pt. Continue with increasing protein to ensure wound healing. Follow-up as needed, discharged from [facility]. Code Visit Office Visits / Consults: [id number] OV L3 Est
== END 2018-03-24 23:59 ==
LOC: WC 14:45
PROVIDERS: Family Provider Family Medicine Geriatric Medicine; PCP Family Medicine Geriatric Medicine; Visit Provider Nurse Practitioner Family
DX: L97.221 Non-pressure chronic ulcer of left calf limited to breakdown of skin (principal); F03.90 Unspecified dementia, unspecified severity, without behavioral disturbance, psychotic disturbance, mood disturbance, and anxiety
CPT/HCPCS: 11042; 99211; G0463

== ENCOUNTER → 2018-03-15 17:03 | Outpatient (CLI) | payer MEDICARE, OTHER, SELFPAY ==
[2018-03-15 17:29] LABS: Absolute Lymphocyte Count 1.51 X10^3/ul (0.83-4.51); Absolute Neutrophil Count 3.7 X10^3/uL (2.0-7.7); Basophil# 0.03 X10^3/uL; Basophil% 0.5 % (0-1); Eosinophils% 3.3 % (0-5); Hematocrit 31.9 % (37-47); Hemoglobin 9.3 g/dl (12.0-15.0); Lymphocyte # 1.51 X10^3/ul (4.0); Lymphocyte % 24.6 % (19-41); Mean Corp Hgb Conc 29.2 g/gl (32-36); Mean Corpuscular Hgb 22.3 pg (27.0-32.0); Mean Corpuscular Volume 76.5 fL (81-99); Monocyte# 0.73 X10^3/uL; Monocyte% 11.9 % (0-10); Neutrophil # 3.65 X10^3/uL (2.7-7.7); Neutrophil % 59.5 % (47-70); Platelet Count 324 K/mm3 (150-450); RBC Distribution Width CV 16.3 % (11.6-14.6); RBC Distribution Width SD 45.2 fl (35.1-43.9); RET-HE 19.2 pg (30-35); Red Blood Count 4.17 M/mm3 (4.2-5.4); Reticulocyte Count 1.08 % (0.5-1.5); White Blood Count 6.1 K/mm3 (4.4-11.0)
[2018-03-15 17:31] LABS: POSITIVE COUNT NO; POSITIVE DIFFERENTIAL NO; POSITIVE MORPHOLOGY NO
[2018-03-15 17:59] LABS: Ferritin 7 ng/mL (8-252); Iron 19 ug/dL (50-170); Iron Binding Capacity,Total 570 ug/dL (250-450)
[2018-03-15 18:04] LABS: Vitamin B12 384 pg/mL (211-911)
== END ==
PROVIDERS: Family Provider Family Medicine Geriatric Medicine; PCP Family Medicine Geriatric Medicine; Visit Provider Family Medicine Geriatric Medicine
DX: D64.9 Anemia, unspecified (principal)
CPT/HCPCS: 36415; 82607; 82728; 83540; 83550; 85025; 85045

== ENCOUNTER 2018-03-29 13:31 | Outpatient (RCR) | payer MEDICARE, OTHER, SELFPAY ==
[2018-03-25 01:34] VITALS: BP 151/82; PULSE 99; RESP 16; TEMP 35.9
[2018-03-29 11:32] VITALS: BP 143/68; PULSE 92; RESP 18; TEMP 37.4
--- NOTE | 2018-03-29 13:30 | HP.PCM_ITS ---
(1) Ulcer of left lower extremity with fat layer exposed Status: Acute Code(s): L97.922 - Non-pressure chronic ulcer of unspecified part of left lower leg with fat layer exposed (2) Type 2 diabetes mellitus with other skin ulcer Status: Resolved Code(s): E11.622 - Type 2 diabetes mellitus with other skin ulcer; L98.499 - Non-pressure chronic ulcer of skin of other sites with unspecified severity History of Present Illness Date of Service: 03/29/18 Chief Complaint: Left lower extremity ulcer. History of Wound: Ms. Contreras is an 82yo with past medical history as documented who was discharged from the wound clinic less than a month ago with healing of her left lower extremity ulcer. Her daughter however states that she noted redness around the ulcer area couple of days ago. Initial episode apparently was after a fall however she has had reopenings since then. She denies any discharge from the site. She also denies chills, fever otherwise feeling of unwell. Diabetes is said to be well controlled. Past Medical History Past Medical History: Chronic Problems (Last Updated 07/12/17 @ 15:31 by Sol Rodriguez) Type 2 diabetes mellitus without complications (Chronic) TIA (transient ischemic attack) (Chronic) GERD (gastroesophageal reflux disease) (Chronic) Dementia (Chronic) Hypertension (Chronic) Surgical History: no surgical history Allergies/Adverse Reactions: Allergies No Known Allergies Allergy (Verified 07/12/17 15:26) Home Medications: Ambulatory Orders Medication Instructions Recorded Pantoprazole Sodium [Protonix] 40 mg PO DAILY 12/25/16 Galantamine HBr [Razadyne] 8 mg PO BID 12/26/16 Iron Poly/Vit C [Niferex-150] 150 mg PO DAILY 06/08/17 clopidogrel 75 mg tablet 75 mg PO DAILY 07/12/17 Amlodipine [Norvasc] 5 mg PO DAILY 02/17/18 Atorvastatin Calcium 20 mg PO DAILY 02/17/18 Ergocalciferol (Vitamin D2) 1.25 mg PO QMONTH 02/17/18 [Ergocal] Metformin HCl 500 mg PO BID 02/17/18 Paroxetine [Paxil] 10 mg PO DAILY 02/17/18 Quetiapine Fumarate [Seroquel] 25 mg PO QHS 02/17/18 - Family History Maternal Family History: Family History (Last Updated 07/12/17 @ 15:31 by Sol Rodriguez) Other Hypercholesterolemia Hypertension No pertinent history Paternal Family History: Family History (Last Updated 07/12/17 @ 15:31 by Sol Rodriguez) Other Hypercholesterolemia Hypertension No pertinent history Smoking Status: Never smoker Tobacco Use: Non-smoker Review of Systems Constitutional: Denies: Anorexia, Chills, Fever, Malaise Eyes: Denies: Blurred vision, Redness HEENT: Denies: Difficulty Swallowing Cardiovascular: Denies: Chest Pain, Chest Tightness Respiratory: Denies: Cough Gastrointestinal: Denies: Abdominal Pain, Hematemesis, Vomiting Skin: Denies: Jaundice - Physical Exam Vital Signs Temp Pulse Resp BP 99.3 F H 92 18 143/68 H 03/29/18 11:32 03/29/18 11:32 03/29/18 11:32 03/29/18 11:32 General: Alert, Cooperative, No apparent distress HEENT: Atraumatic Oral: Moist Mucosa Neck: Supple Lungs: Normal air movement Cardiovascular: Regular rate Abdomen: Soft, Non Tender Extremities: No cyanosis, Edema Skin: Ulcer/ Wound Wound Measurements and Assessment WC - Nurse 1 - General Ulcer Measurement Start: 03/29/18 11:32 Freq: Status: Active Protocol: Activity Type Activity Date Activity User E-Sign Co-Sign Detail Recorded Client Recorded Date Recorded By Document 03/29/18 11:32 RB [id number] 03/29/18 11:42 RB 03/29/18 11:32 Wound Center Nurse 1 [Ulcer Assessment] #2 POSTERIOR LLE -Combined with other wound No -Current Size (cm) - Length 0.1 -Current Size (cm) - Width 0.1 -Current Size (cm) - Depth 0.1 -Total Square Cm 0.01 -Photo Taken No -Tunneling No -Undermining/Tunneling No -Circular Undermining No -Classification - Thickness Full Thickness without Exposed Support Structure -Exudate Amt None Present (0 %) -Wound Margin Distinct, Outline Attached -Granulation Amt Small (1-33%) -Granulation Quality [place] -Necrosis Amt Large (67-100%) -Necrotic Tissue Type Adherent Slough -Structure Exposed N/A -Texture (Anuradha-wound Skin Appearance) Assessed -Moisture (Anuradha-wound Skin Appearance Assessed ) -Color (Anuradha-wound Skin Appearance) Assessed -Temperature (Anuradha-wound Skin No Abnormality Appearance) (Pt Warm) -Tenderness on Palpation (Anuradha-wound No Skin Appearance) -Ulcer Cleansing Rinsed/ Irrigated with Saline -Anesthetic Used 5% Lidocaine Gel WC - Nurse 2 - General Ulcer CM Notes Start: 03/29/18 11:32 Freq: Status: Active Protocol: Activity Type Activity Date Activity User E-Sign Co-Sign Detail Recorded Client Recorded Date Recorded By Document 03/29/18 11:51 MW [id number] 03/29/18 12:05 MW 03/29/18 11:51 Wound Center Nurse 2 [Procedure/Treatment] -Time 11:52 -Correct Patient Yes -Correct Side, Site, Position Yes -Correct Procedure Yes -Procedure Performed Yes -Type of Procedure Debridement -Clinical Debridement Subcutaneous -Post Debridement Size (cm) - Length 0.5 -Post Debridement Size (cm) - Width 1.0 -Post Debridement Size (cm) - Depth 0.5 -Total Square Cm 0.50 -Wound/Ulcer Outcome Not Healed -Ulcer Cleansing Rinsed/ Irrigated with Saline -Foul Odor after Cleansing No -Bioengineered Tissue No -Bleeding Controlled with Pressure -Treatment Response Procedure Tolerated Well [See Physician Procedure note for Specifics] Pain Scale: 0-10 Numeric [Pain] -Is Patient Pain Free? Yes Musculoskeletal: No Muscle Wasting Neurological: Cranial nerves II-XII grossly intact Psych/Mental Status: Normal Affect Debridement Note Post-Debridement Measurements/Treatment ALEXUS - Nurse 2 - General Ulcer CM Notes Start: 03/29/18 11:32 Freq: Status: Active Protocol: Activity Type Activity Date Activity User E-Sign Co-Sign Detail Recorded Client Recorded Date Recorded By Document 03/29/18 11:51 MW [id number] 03/29/18 12:05 MW 03/29/18 11:51 Wound Center Nurse 2 #2 POSTERIOR LLE -Time 11:52 -Correct Patient Yes -Correct Side, Site, Position Yes -Correct Procedure Yes -Procedure Performed Yes -Type of Procedure Debridement -Clinical Debridement Subcutaneous -Post Debridement Size (cm) - Length 0.5 -Post Debridement Size (cm) - Width 1.0 -Post Debridement Size (cm) - Depth 0.5 -Total Square Cm 0.50 -Wound/Ulcer Outcome Not Healed -Ulcer Cleansing Rinsed/ Irrigated with Saline -Foul Odor after Cleansing No -Bioengineered Tissue No -Bleeding Controlled with Pressure -Treatment Response Procedure Tolerated Well Pain Scale: 0-10 Numeric Is Patient Pain Free? 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 Diabetes type 2. Dementia. Plan: Debridement done as documented above. Procedure was well-tolerated. Ulcer does not probe to bone. However, minimal discharge noted. Cultures taken. X-ray of left lower extremity also ordered to rule out osteomyelitis. Kassie daily with Adaptic over top. Elevate lower extremity when seated and in bed. Avoid idle standing. Exercise also recommended. Increased protein intake recommended. Optimal blood sugar control encouraged. Advised to call with any questions or concerns. Follow-up in 1 week. This note was generated with [employer] software. It may contain incorrect words, spelling, and punctuation that were not noted in checking the note before signing.
== END 2018-04-23 23:59 ==
LOC: WC 13:31
PROVIDERS: Family Provider Family Medicine Geriatric Medicine; PCP Family Medicine Geriatric Medicine; Visit Provider Internal Medicine
DX: E11.622 Type 2 diabetes mellitus with other skin ulcer (principal); L97.822 Non-pressure chronic ulcer of other part of left lower leg with fat layer exposed; K21.9 Gastro-esophageal reflux disease without esophagitis; I10 Essential (primary) hypertension; F03.90 Unspecified dementia, unspecified severity, without behavioral disturbance, psychotic disturbance, mood disturbance, and anxiety; Z79.899 Other long term (current) drug therapy
CPT/HCPCS: 11042; 73590; 87070; 87075; 87205

== ENCOUNTER → 2018-04-19 16:46 | Outpatient (CLI) | payer MEDICARE, OTHER, SELFPAY ==
[2018-04-19 17:50] LABS: Vitamin D,25 Hydroxy 75.8 ng/mL (29.95-100.01)
[2018-04-19 17:52] LABS: AST(SGOT) 19 U/L (15-37); Alanine Aminotransfer ALT/SGPT 22 U/L (13-56); Albumin, Serum 3.5 g/dL (3.2-5.0); Alkaline Phosphatase 67 U/L (45-117); Anion Gap 9 (5-15); BUN 16 mg/dL (7-18); Chloride 100 mmol/L (98-107); EST Glomerular Filtration Rate 73 mL/min (>60); Est Glom Filt Rate - Afr Amer 88 mL/min (>60); Globulin 3.4 g/dL (2.2-4.2); Glucose 159 mg/dL (74-106); Potassium 3.8 mmol/L (3.5-5.1); Protein, Total 6.9 g/dL (6.4-8.2); Sodium Level 134 mmol/L (136-145); Thyroid Stim Hormone (TSH) 3.96 uIU/mL (0.358-3.74)
[2018-04-19 17:58] LABS: Absolute Lymphocyte Count 0.97 X10^3/ul (0.83-4.51); Absolute Neutrophil Count 3.3 X10^3/uL (2.0-7.7); Basophil# 0.02 X10^3/uL; Basophil% 0.4 % (0-1); Eosinophil# 0.14 X10^3/uL; Eosinophils% 2.8 % (0-5); Hematocrit 34.8 % (37-47); Hemoglobin 10.7 g/dl (12.0-15.0); Lymphocyte # 0.97 X10^3/ul (4.0); Lymphocyte % 19.1 % (19-41); Mean Corp Hgb Conc 30.7 g/gl (32-36); Mean Corpuscular Hgb 25.2 pg (27.0-32.0); Mean Corpuscular Volume 82.1 fL (81-99); Mean Platelet Vol. 11.1 fl (6.2-12.0); Monocyte# 0.61 X10^3/uL; Neutrophil # 3.33 X10^3/uL (2.7-7.7); Neutrophil % 65.5 % (47-70); Platelet Count 273 K/mm3 (150-450); RBC Distribution Width CV 24.8 % (11.6-14.6); Red Blood Count 4.24 M/mm3 (4.2-5.4); White Blood Count 5.1 K/mm3 (4.4-11.0)
[2018-04-19 18:06] LABS: POSITIVE COUNT NO; POSITIVE DIFFERENTIAL NO; POSITIVE MORPHOLOGY NO
== END ==
PROVIDERS: Family Provider Family Medicine Geriatric Medicine; PCP Family Medicine Geriatric Medicine; Visit Provider Family Medicine Geriatric Medicine
DX: E11.9 Type 2 diabetes mellitus without complications (principal); E55.9 Vitamin D deficiency, unspecified; I10 Essential (primary) hypertension
CPT/HCPCS: 36415; 80053; 82306; 84443; 85025

== ENCOUNTER → 2018-06-12 08:42 | Outpatient (CLI) | payer MEDICARE, OTHER, SELFPAY ==
[2018-06-12 13:31] LABS: Thyroid Stim Hormone (TSH) 1.15 uIU/mL (0.358-3.74)
== END ==
PROVIDERS: Family Provider Family Medicine Geriatric Medicine; PCP Family Medicine Geriatric Medicine; Visit Provider Family Medicine Geriatric Medicine
DX: E03.9 Hypothyroidism, unspecified (principal)
CPT/HCPCS: 36415; 84443

== ENCOUNTER → 2018-08-04 12:40 | Outpatient (CLI) | payer MEDICARE, OTHER, SELFPAY | PROVIDERS: Family Provider Family Medicine Geriatric Medicine; PCP Family Medicine Geriatric Medicine; Referring Provider Family Medicine Geriatric Medicine; Visit Provider Family Medicine Geriatric Medicine | DX: R69 Illness, unspecified (principal) | CPT/HCPCS: 87633 ==

== ENCOUNTER → 2018-09-26 19:33 | Outpatient (CLI) | payer MEDICARE, OTHER, SELFPAY ==
--- NOTE | 2018-09-26 19:50 | RAD_ITS ---
STUDY: X-RAY - BILATERAL HIPS WITHOUT PELVIS REASON FOR EXAM: Female, 83 years old. Bilateral hip pain. TECHNIQUE: 2 views of the right hip, and 2 views of the left hip were obtained. COMPARISON: None. FINDINGS: Right Hip: Normal right femoral head, neck, intertrochanteric region and visualized proximal femur. Normal right acetabulum. There is mild articular joint space narrowing of the right hip. Left Hip: Normal left femoral head, neck, intertrochanteric region and visualized proximal femur. Normal left acetabulum. There is moderate articular joint space narrowing of the left hip. Normal bilateral superior and inferior pubic rami , ischial tuberosities and pubic symphysis. 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 Electronically Signed: Dell Combs, at 16:10 EST , Service support ,
== END ==
PROVIDERS: Family Provider Family Medicine Geriatric Medicine; PCP Family Medicine Geriatric Medicine; Visit Provider Family Medicine Geriatric Medicine
DX: M79.18 Myalgia, other site (principal); M25.551 Pain in right hip; M25.552 Pain in left hip
CPT/HCPCS: 73521

== ENCOUNTER 2018-11-09 12:49 | Emergency (ER) | payer MEDICARE, OTHER, SELFPAY ==
[2018-11-09 12:50] VITALS: BP 133/80; PULSE 84; RESP 17; TEMP 36.8; O2SAT 96; BMI 19.5
--- NOTE | 2018-11-09 13:43 | CT_ITS ---
STUDY: CT ABDOMEN AND PELVIS WITHOUT CONTRAST REASON FOR EXAM: Female, 83 years old. Nausea and vomiting. History of loss of appetite. Breast cancer. RADIATION DOSAGE (If Supplied By Facility): CTDIvol = ( 6.05 ) mGy, DLP = ( 266.11 ) mGycm TECHNIQUE: Transaxial images were obtained from the dome of the diaphragm to the symphysis pubis without oral contrast, and without intravenous contrast. Sagittal and coronal images were reconstructed. Individualized dose optimization techniques were used for this CT. COMPARISON: None. FINDINGS: Increased interstitial markings with areas of confluence of the lung bases suggestive of bibasilar scarring. Coronary artery calcification. Mitral valve calcification. Normal liver. Increased density is seen within the gallbladder lumen. This may represent either small gallstones or sludge. Normal spleen. Normal pancreas. Normal bilateral adrenal glands. Normal right kidney. There is a 1.4 cm x 1.8 cm hypodensity in the lower pole of the left kidney suggestive of a small cyst. Moderate hiatal hernia. Normal small intestine. A moderate amount of fecal material is seen in the colon. There is non-visualization of the appendix. There is diffuse atherosclerotic calcification of the abdominal aorta and its major visceral branches, without a demonstrated aneurysm. Normal inferior vena cava. Normal retroperitoneum. Normal urinary bladder. There is absence of the uterus consistent with a prior hysterectomy. Normal abdominal wall. There are diffuse degenerative changes of the visualized lumbar spine. Anterolisthesis of L4 on L5. Complete collapse of the T12 vertebrae. CT/Abdomen/Pelvis without Cont IMPRESSION: Increased density within the gallbladder lumen suggestive of either small gallstones or sludge. 1.4 cm x 1.8 cm hypodensity in the lower pole of the left kidney most likely represent a cyst. Moderate amount of fecal material is seen in the colon. Anterior listhesis of L4 on L5. Complete collapse of the T12 vertebrae. Electronically Signed: Dell Combs, at 14:52 EDT , Service support ,
[2018-11-09] MEDS: 0.9% Normal Saline 1,000 ML 125 ML IV (13:52)
[2018-11-09 14:03] LABS: Hematocrit 43.7 % (37-47); Hemoglobin 14.2 g/dl (12.0-15.0); Mean Corp Hgb Conc 32.5 g/gl (32-36); Mean Corpuscular Hgb 29.9 pg (27.0-32.0); RBC Distribution Width CV 13.5 % (11.6-14.6); Red Blood Count 4.75 M/mm3 (4.2-5.4); White Blood Count 9.2 K/mm3 (4.4-11.0)
[2018-11-09 14:04] LABS: Basophil% 0.2 % (0-1); Eosinophils% 0.8 % (0-5); Lymphocyte # 1.74 X10^3/ul (4.0); Mean Platelet Vol. 9.6 fl (6.2-12.0); Monocyte% 12.7 % (0-10); Neutrophil # 6.16 X10^3/uL (2.7-7.7); Neutrophil % 67.2 % (47-70); POSITIVE COUNT NO; POSITIVE DIFFERENTIAL NO; POSITIVE MORPHOLOGY NO; Platelet Count 333 K/mm3 (150-450); RBC Distribution Width SD 45.3 fl (35.1-43.9)
[2018-11-09 14:05] LABS: Basophil# 0.02 X10^3/uL; Eosinophil# 0.07 X10^3/uL; Monocyte# 1.16 X10^3/uL
[2018-11-09 14:07] LABS: AST(SGOT) 25 U/L (15-37); Absolute Lymphocyte Count 1.74 X10^3/ul (0.83-4.51); Absolute Neutrophil Count 0.6 X10^3/uL (2.0-7.7); Alanine Aminotransfer ALT/SGPT 16 U/L (13-56); Albumin, Serum 3.4 g/dL (3.2-5.0); Alkaline Phosphatase 109 U/L (45-117); Anion Gap 9 (5-15); BUN 11 mg/dL (7-18); BUN/Creat Ratio 15.9 RATIO (10-20); Bilirubin, Direct 0.14 mg/dL (0.00-0.30); Calcium,Total 9.1 mg/dL (8.5-10.1); Chloride 97 mmol/L (98-107); Creatinine, Serum 0.69 mg/dL (0.55-1.02); EST Glomerular Filtration Rate 86 mL/min (>60); Est Glom Filt Rate - Afr Amer 104 mL/min (>60); Estimated Creatinine Clearance 30.52 ml/min; Globulin 3.8 g/dL (2.2-4.2); Glucose 152 mg/dL (74-106); Lipase 67 U/L (73-393); Potassium 2.9 mmol/L (3.5-5.1); Protein, Total 7.2 g/dL (6.4-8.2); Sodium Level 133 mmol/L (136-145)
--- NOTE | 2018-11-09 14:22 | ED.VISSUMM ---
- ER Visit Summary Date of Service: 11/09/18 Chief Complaint: [] Vomiting intermittent diarrhea for days History of Present Illness: The patient is a 83 F [] here with her daughter lives with patient reports that the patient's had intermittent diarrhea for days and intermittent vomiting etiology which is unclear no fever no cough no exposures no obvious history of prior colonoscopy, the patient has no specific complaints daughter is concerned she is becoming dehydrated, patient has dementia and really cannot provide history but per the daughter other than the diarrhea and the vomiting her health status is been stable no fevers no cough no exposures Daughter does report prior back injury where the patient fell she intimately complains of back discomfort that is not new Physical Examination: [] Vital signs within normal range General, no distress resting comfortably HEENT is generally unremarkable The neck is supple no adenopathy Cardiovascular, regular rate and rhythm Lungs, clear bilateral Abdomen, soft nontender, rectal exam shows soft brown stool nothing acute Extremities, no clubbing cyanosis or edema Neurologic, awake alert answering questions appropriately moving all 4 extremities Test Results: [] Emergency Department Course and Treatment: [] Clinically the patient looks well she is in no distress given all the above screening labs IV fluids CT UA patient screening labs abdominal CT general unremarkable, there is complete collapse of T12's nothing acute nothing emergent see that report, T12 likely represents the fall the daughter reported above her UA is pending the CT did show quite a constipation on reevaluation she is resting comfortably abdomen soft and nontender daughter is comfortable taking her home she understands the concept of high-fiber food MiraLA[employer] and follow the PCP consider colonoscopy also please note said no vomiting or diarrhea in the ED Treatment Plan: [] Disposition: [] Home stable Impression: [] Vomiting diarrhea resolved This note was generated with [employer] dictation software. It may contain incorrect words, spelling, and punctuation that were not noted in review of the chart prior to signing ED Disposition - Plan for ED Patient: Instructions: ED Diet Vomiting Diarrhea Referrals: Zoran Alejo Chi, MD [Primary Care Provider] -
[2018-11-09 15:06] VITALS: BP 148/77; PULSE 80; RESP 19; O2SAT 96
--- NOTE | 2018-11-09 15:12 | ED.DEP ---
ED Disposition - Plan for ED Patient: Instructions: ED Diet Vomiting Diarrhea Referrals: Zoran Alejo Chi, MD [Primary Care Provider] -
[2018-11-09 15:43] LABS: Mucous, Urine 0 SEEN /hpf (<or=2+); Red Blood Cells-Urine 0 SEEN /hpf (0-5)
[2018-11-09 15:45] LABS: Color, Urine Yellow (Yellow); Glucose, Dipstick Normal (Normal); Ketone-Dipstick 15 mg/dl (Negative); Leukocyte Esterase-Dipstick 500 /ul (Negative); Nitrite-Dipstick Negative (Negative); Occult Blood-Urine 10 /ul (Negative); Protein-Dipstick 30 mg/dl (Negative); Urine Bilirubin Dipstick Negative (Negative); Urine Clarity Cloudy (Clear); Urine Urobilinogen Normal (Normal); Urine pH 6.5 (5.0 - 8.0)
[2018-11-09 15:55] LABS: Bacteria 4+ /hpf (None Seen)
[2018-11-09 15:56] LABS: Squamous Epithelial Cells - UA 0-5 SEEN /hpf (5-10)
[2018-11-09 15:58] LABS: Transitional Epithelial - Ur 0-5 SEEN /hpf (0-5)
[2018-11-09 15:59] LABS: White Blood Cells 50-100 SEEN /hpf (0-5)
[2018-11-09 16:19] VITALS: BP 148/77; PULSE 72; RESP 16; O2SAT 96
--- NOTE | 2018-11-09 16:20 | ED.RN ---
IV DC'ED, CATHETER INTACT, SMALL GAUZE DRESSING PLACED. DISCHARGE INSTRUCTIONS GIVEN TO AND REVIEWED WITH PATIENT AND DAUGHTER, BOTH DENY QUESTIONS OR CONCERNS AND VOICE UNDERSTANDING OF DISCHARGE INSTRUCTIONS. PT AMBULATES OUT OF ROOM WITHOUT DIFFICULTY.
== END 2018-11-09 16:21 | disposition home or self-care (01) ==
LOC: ED 14:52
PROVIDERS: Emergency Provider Emergency Medicine; Family Provider Family Medicine Geriatric Medicine; PCP Family Medicine Geriatric Medicine
DX: R11.2 Nausea with vomiting, unspecified (principal); R19.7 Diarrhea, unspecified; F03.90 Unspecified dementia, unspecified severity, without behavioral disturbance, psychotic disturbance, mood disturbance, and anxiety; Z79.82 Long term (current) use of aspirin
CPT/HCPCS: 74176; 80048; 80076; 81001; 83690; 85025; 96360; 96361; 99285; J7030; A4216

== ENCOUNTER → 2018-11-27 | Outpatient (CLI) | payer MEDICARE, OTHER, SELFPAY ==
[2018-11-09 12:50] VITALS: BMI 19.5
[2018-11-27 17:05] LABS: Absolute Lymphocyte Count 1.01 X10^3/ul (0.83-4.51); Absolute Neutrophil Count 6.6 X10^3/uL (2.0-7.7); Basophil# 0.01 X10^3/uL; Basophil% 0.1 % (0-1); Eosinophil# 0.05 X10^3/uL; Eosinophils% 0.6 % (0-5); Hematocrit 43.7 % (37-47); Hemoglobin 14.2 g/dl (12.0-15.0); Lymphocyte # 1.01 X10^3/ul (4.0); Lymphocyte % 12.2 % (19-41); Mean Corp Hgb Conc 32.5 g/gl (32-36); Mean Corpuscular Hgb 29.6 pg (27.0-32.0); Mean Corpuscular Volume 91.2 fL (81-99); Mean Platelet Vol. 10.4 fl (6.2-12.0); Monocyte% 7.3 % (0-10); Neutrophil # 6.58 X10^3/uL (2.7-7.7); Neutrophil % 79.7 % (47-70); Platelet Count 307 K/mm3 (150-450); RBC Distribution Width CV 13.5 % (11.6-14.6); RBC Distribution Width SD 44.9 fl (35.1-43.9); Red Blood Count 4.79 M/mm3 (4.2-5.4); White Blood Count 8.3 K/mm3 (4.4-11.0)
[2018-11-27 17:06] LABS: POSITIVE COUNT NO; POSITIVE DIFFERENTIAL NO; POSITIVE MORPHOLOGY NO
[2018-11-27 17:46] LABS: Vitamin D,25 Hydroxy 68.5 ng/mL (29.95-100.01)
[2018-11-27 19:48] LABS: BUN 7 mg/dL (7-18); Glucose 175 mg/dL (74-106)
[2018-11-27 19:49] LABS: Alanine Aminotransfer ALT/SGPT 21 U/L (13-56); Albumin, Serum 3.4 g/dL (3.2-5.0); Alkaline Phosphatase 102 U/L (45-117); Anion Gap 13 (5-15); Calcium,Total 9.1 mg/dL (8.5-10.1); Chloride 100 mmol/L (98-107); Sodium Level 133 mmol/L (136-145); Thyroid Stim Hormone (TSH) 1.94 uIU/mL (0.358-3.74)
[2018-11-27 20:14] LABS: ALB/GLOB Ratio 0.9 RATIO (0.9-2.4); AST(SGOT) 33 U/L (15-37); EST Glomerular Filtration Rate 85 mL/min (>60); Est Glom Filt Rate - Afr Amer 103 mL/min (>60); Globulin 3.8 g/dL (2.2-4.2); Potassium 3.3 mmol/L (3.5-5.1); Protein, Total 7.2 g/dL (6.4-8.2)
== END | disposition home or self-care (01) ==
LOC: POLAB3 14:43
PROVIDERS: Family Provider Family Medicine Geriatric Medicine; PCP Family Medicine Geriatric Medicine; Visit Provider Family Medicine Geriatric Medicine
DX: E11.9 Type 2 diabetes mellitus without complications (principal); E55.9 Vitamin D deficiency, unspecified; I10 Essential (primary) hypertension
CPT/HCPCS: 36415; 80053; 82306; 84443; 85025

== ENCOUNTER → 2019-03-07 | Outpatient (CLI) | payer MEDICARE, OTHER, SELFPAY | END | disposition home or self-care (01) | LOC: LABSPEC 15:57 | PROVIDERS: Family Provider Family Medicine Geriatric Medicine; PCP Family Medicine Geriatric Medicine; Visit Provider Family Medicine Geriatric Medicine | DX: N39.0 Urinary tract infection, site not specified (principal) | CPT/HCPCS: 87086; 87088 ==

== ENCOUNTER → 2019-04-23 | Outpatient (CLI) | payer MEDICARE, OTHER, SELFPAY ==
[2019-04-23 16:42] LABS: Absolute Lymphocyte Count 1.39 X10^3/uL (0.83-4.51); Absolute Neutrophil Count 2.2 X10^3/uL (2.0-7.7); Basophil# 0.03 X10^3/uL; Basophil% 0.7 % (0-1); Eosinophils% 4.6 % (0-5); Hematocrit 37.6 % (37-47); Hemoglobin 11.2 g/dL (12.0-15.0); Lymphocyte # 1.39 X10^3/ul (4.0); Lymphocyte % 32.3 % (19-41); Mean Corp Hgb Conc 29.8 g/dL (32-36); Mean Corpuscular Hgb 28.6 pg (27.0-32.0); Mean Corpuscular Volume 95.9 fL (81-99); Mean Platelet Vol. 11.2 fl (6.2-12.0); Monocyte% 11.6 % (0-10); NRBC Flagged by Analyzer 0 % (0-5); Neutrophil # 2.18 X10^3/uL (2.7-7.7); Neutrophil % 50.6 % (47-70); Platelet Count 293 K/mm3 (150-450); RBC Distribution Width CV 13.6 % (11.6-14.6); Red Blood Count 3.92 M/mm3 (4.2-5.4); White Blood Count 4.3 K/mm3 (4.4-11.0)
[2019-04-23 17:15] LABS: Vitamin D,25 Hydroxy 44.2 ng/mL (29.95-100.01)
[2019-04-23 17:20] LABS: ALB/GLOB Ratio 0.8 RATIO (0.9-2.4); AST(SGOT) 30 U/L (15-37); Alanine Aminotransfer ALT/SGPT 25 U/L (13-56); Albumin, Serum 3.3 g/dL (3.2-5.0); Alkaline Phosphatase 74 U/L (45-117); Anion Gap 8 (5-15); BUN 18 mg/dL (7-18); BUN/Creat Ratio 23.7 RATIO (10-20); Calcium,Total 9.1 mg/dL (8.5-10.1); Chloride 106 mmol/L (98-107); Creatinine, Serum 0.76 mg/dL (0.55-1.02); EST Glomerular Filtration Rate 77 mL/min (>60); Est Glom Filt Rate - Afr Amer 94 mL/min (>60); Globulin 3.9 g/dL (2.2-4.2); Glucose 180 mg/dL (74-106); Potassium 4.4 mmol/L (3.5-5.1); Protein, Total 7.2 g/dL (6.4-8.2); Sodium Level 139 mmol/L (136-145)
== END | disposition home or self-care (01) ==
LOC: POLAB3 15:21
PROVIDERS: Family Provider Family Medicine Geriatric Medicine; PCP Family Medicine Geriatric Medicine; Visit Provider Family Medicine Geriatric Medicine
DX: E11.9 Type 2 diabetes mellitus without complications (principal); E55.9 Vitamin D deficiency, unspecified; I10 Essential (primary) hypertension; E87.6 Hypokalemia
CPT/HCPCS: 36415; 80053; 82306; 84443; 85025

== ENCOUNTER → 2019-07-26 16:01 | Outpatient (CLI) | payer MEDICARE, OTHER, SELFPAY ==
[2019-07-26 17:23] LABS: Absolute Lymphocyte Count 1.21 X10^3/uL (0.83-4.51); Basophil# 0.01 X10^3/uL; Basophil% 0.3 % (0-1); Eosinophil# 0.26 X10^3/uL; Eosinophils% 6.5 % (0-5); Hemoglobin 8.7 g/dL (12.0-15.0); Lymphocyte # 1.21 X10^3/ul (4.0); Lymphocyte % 30.3 % (19-41); Mean Corp Hgb Conc 28.1 g/dL (32-36); Mean Corpuscular Hgb 23.1 pg (27.0-32.0); Mean Corpuscular Volume 82.2 fL (81-99); Mean Platelet Vol. 11.4 fl (6.2-12.0); Monocyte# 0.48 X10^3/uL; NRBC Flagged by Analyzer 0 % (0-5); Neutrophil # 2.02 X10^3/uL (2.7-7.7); Neutrophil % 50.6 % (47-70); Platelet Count 237 K/mm3 (150-450); RBC Distribution Width CV 16.9 % (11.6-14.6); RBC Distribution Width SD 50.4 fl (35.1-43.9); Red Blood Count 3.77 M/mm3 (4.2-5.4)
[2019-07-26 17:50] LABS: Vitamin D,25 Hydroxy 49.2 ng/mL (29.95-100.01)
[2019-07-26 17:59] LABS: ALB/GLOB Ratio 0.8 RATIO (0.9-2.4); AST(SGOT) 28 U/L (15-37); Alanine Aminotransfer ALT/SGPT 16 U/L (13-56); Albumin, Serum 2.8 g/dL (3.2-5.0); Alkaline Phosphatase 67 U/L (45-117); Anion Gap 8 (5-15); BUN 18 mg/dL (7-18); BUN/Creat Ratio 22.2 RATIO (10-20); Calcium,Total 8.4 mg/dL (8.5-10.1); Chloride 113 mmol/L (98-107); Creatinine, Serum 0.81 mg/dL (0.55-1.02); EST Glomerular Filtration Rate 72 mL/min (>60); Est Glom Filt Rate - Afr Amer 87 mL/min (>60); Globulin 3.4 g/dL (2.2-4.2); Glucose 87 mg/dL (74-106); Potassium 4.4 mmol/L (3.5-5.1); Protein, Total 6.2 g/dL (6.4-8.2); Sodium Level 143 mmol/L (136-145); Thyroid Stim Hormone (TSH) 0.47 uIU/mL (0.358-3.74)
== END ==
PROVIDERS: Family Provider Family Medicine Geriatric Medicine; PCP Family Medicine Geriatric Medicine; Visit Provider Family Medicine Geriatric Medicine
DX: E11.9 Type 2 diabetes mellitus without complications (principal); E55.9 Vitamin D deficiency, unspecified; I10 Essential (primary) hypertension
CPT/HCPCS: 36415; 80053; 82306; 84443; 85025

== ENCOUNTER → 2019-10-04 | Outpatient (CLI) | payer MEDICARE, OTHER, SELFPAY ==
[2019-10-04 12:02] LABS: Absolute Lymphocyte Count 0.95 X10^3/uL (0.83-4.51); Absolute Neutrophil Count 4.6 X10^3/uL (2.0-7.7); Basophil# 0.01 X10^3/uL; Basophil% 0.2 % (0-1); Eosinophils% 1.5 % (0-5); Hematocrit 32.8 % (37-47); Hemoglobin 9.2 g/dL (12.0-15.0); Lymphocyte # 0.95 X10^3/ul (4.0); Lymphocyte % 14.4 % (19-41); Mean Corpuscular Hgb 21.7 pg (27.0-32.0); Mean Corpuscular Volume 77.5 fL (81-99); Mean Platelet Vol. 10.6 fl (6.2-12.0); Monocyte# 0.92 X10^3/uL; Monocyte% 13.9 % (0-10); NRBC Flagged by Analyzer 0 % (0-5); Neutrophil # 4.59 X10^3/uL (2.7-7.7); Neutrophil % 69.5 % (47-70); Platelet Count 294 K/mm3 (150-450); RBC Distribution Width CV 17.7 % (11.6-14.6); RBC Distribution Width SD 49.6 fl (35.1-43.9); Red Blood Count 4.23 M/mm3 (4.2-5.4); White Blood Count 6.6 K/mm3 (4.4-11.0)
--- NOTE | 2019-10-04 12:07 | RAD_ITS ---
STUDY: X-RAY - LUMBAR SPINE REASON FOR EXAM: Female, 84 years old. Back pain, osteoporosis -- NKI TECHNIQUE: 3 view(s) of the lumbar spine were obtained. COMPARISON: CT scan 11/09/2018 FINDINGS: Limited by severe demineralization and suboptimal positioning. The lateral view is obliqued. Severe compression fracture seen at T12, also present previously. Moderate compression fracture of L4 probably slightly worse. No other definite compression fractures. Normal lordosis. Stable anterolisthesis of L4 on L5. There is diffuse demineralization with multi-level endplate spondylosis. There is multi-level degenerative disc disease with multi-level disc space narrowing. There is atherosclerotic calcification of the abdominal aorta without a demonstrated aneurysm. RAD/Lumbar Spine 2 or 3 Views IMPRESSION: Limited exam. Severe demineralization. Severe compression fracture of T12 is stable. Moderate compression fracture of L4 is slightly worse. Electronically Signed: Edwin Juan MD at 17:06 EDT , Service support ,
--- NOTE | 2019-10-04 12:07 | RAD_ITS ---
STUDY: X-RAY - THORACIC SPINE REASON FOR EXAM: Female, 84 years old. Back pain, osteoporosis -- NKI TECHNIQUE: 3 view(s) of the thoracic spine were obtained. COMPARISON: Chest x-ray 12/28/2016. FINDINGS: Exam limited by severe demineralization. Exaggerated kyphosis. Severe compression fracture, probably of T10, stable. Partial compression fracture probably of T9, stable. Severe compression fracture probably of T8, new. Severe compression fracture of probably T5, new since prior exam. No evidence of scoliosis. Multilevel degenerative disc disease. RAD/Thoracic Spine 3 Views IMPRESSION: Numerous compression fractures including probably T5 and T8 having occurred since previous exam. Severe demineralization. Electronically Signed: Edwin Juan MD at 22:29 EDT , Service support ,
[2019-10-04 13:23] LABS: ALB/GLOB Ratio 0.9 RATIO (0.9-2.4); AST(SGOT) 24 U/L (15-37); Alanine Aminotransfer ALT/SGPT 23 U/L (13-56); Albumin, Serum 3.2 g/dL (3.2-5.0); Alkaline Phosphatase 72 U/L (45-117); Anion Gap 11 (5-15); BUN 27 mg/dL (7-18); BUN/Creat Ratio 14.9 RATIO (10-20); Calcium,Total 8.7 mg/dL (8.5-10.1); Chloride 92 mmol/L (98-107); Creatinine, Serum 1.81 mg/dL (0.55-1.02); EST Glomerular Filtration Rate 28 mL/min (>60); Est Glom Filt Rate - Afr Amer 34 mL/min (>60); Globulin 3.6 g/dL (2.2-4.2); Glucose 183 mg/dL (74-106); Potassium 2.7 mmol/L (3.5-5.1); Protein, Total 6.8 g/dL (6.4-8.2); Sodium Level 130 mmol/L (136-145); Thyroid Stim Hormone (TSH) 1.79 uIU/mL (0.358-3.74)
== END | disposition home or self-care (01) ==
PROVIDERS: PCP Family Medicine Geriatric Medicine; Referring Provider Family Medicine Geriatric Medicine; Visit Provider Family Medicine Geriatric Medicine
DX: G93.9 Disorder of brain, unspecified (principal); I10 Essential (primary) hypertension; N39.0 Urinary tract infection, site not specified; M54.5 Low back pain; M54.6 Pain in thoracic spine
CPT/HCPCS: 36415; 72072; 72100; 80053; 84443; 85025; 87086; 87088

== ENCOUNTER → 2020-01-23 | Outpatient (CLI) | payer MEDICARE, OTHER, SELFPAY ==
[2020-01-23 16:11] LABS: Absolute Lymphocyte Count 1.61 X10^3/uL (0.83-4.51); Absolute Neutrophil Count 3.2 X10^3/uL (2.0-7.7); Basophil# 0.02 X10^3/uL; Basophil% 0.3 % (0-1); Eosinophil# 0.15 X10^3/uL; Eosinophils% 2.6 % (0-5); Hematocrit 32.3 % (37-47); Hemoglobin 9.4 g/dL (12.0-15.0); Lymphocyte # 1.61 X10^3/ul (4.0); Mean Corp Hgb Conc 29.1 g/dL (32-36); Mean Corpuscular Hgb 22.8 pg (27.0-32.0); Mean Corpuscular Volume 78.4 fL (81-99); Mean Platelet Vol. 11.6 fl (6.2-12.0); Monocyte# 0.76 X10^3/uL; Monocyte% 13.2 % (0-10); NRBC Flagged by Analyzer 0 % (0-5); Neutrophil # 3.21 X10^3/uL (2.7-7.7); Neutrophil % 55.7 % (47-70); Platelet Count 250 K/mm3 (150-450); RBC Distribution Width CV 18.8 % (11.6-14.6); RBC Distribution Width SD 53.4 fl (35.1-43.9); Red Blood Count 4.12 M/mm3 (4.2-5.4); White Blood Count 5.8 K/mm3 (4.4-11.0)
[2020-01-23 16:49] LABS: ALB/GLOB Ratio 0.8 RATIO (0.9-2.4); AST(SGOT) 24 U/L (15-37); Alanine Aminotransfer ALT/SGPT 17 U/L (13-56); Albumin, Serum 3.1 g/dL (3.2-5.0); Alkaline Phosphatase 74 U/L (45-117); Anion Gap 5 (5-15); BUN 21 mg/dL (7-18); BUN/Creat Ratio 19.8 RATIO (10-20); Calcium,Total 8.8 mg/dL (8.5-10.1); Chloride 107 mmol/L (98-107); Creatinine, Serum 1.06 mg/dL (0.55-1.02); EST Glomerular Filtration Rate 52 mL/min (>60); Est Glom Filt Rate - Afr Amer 63 mL/min (>60); Globulin 3.9 g/dL (2.2-4.2); Glucose 151 mg/dL (74-106); Potassium 5.1 mmol/L (3.5-5.1); Sodium Level 137 mmol/L (136-145); Thyroid Stim Hormone (TSH) 2.91 uIU/mL (0.358-3.74)
== END | disposition home or self-care (01) ==
LOC: POLAB3 14:41
PROVIDERS: PCP Family Medicine Geriatric Medicine; Referring Provider Family Medicine Geriatric Medicine; Visit Provider Family Medicine Geriatric Medicine
DX: E87.6 Hypokalemia (principal); E11.9 Type 2 diabetes mellitus without complications; E55.9 Vitamin D deficiency, unspecified; I10 Essential (primary) hypertension
CPT/HCPCS: 36415; 80053; 82306; 84443; 85025